=== PATIENT | male | born 1995 | race African-American/Black ===

== ENCOUNTER 2023-08-24 12:48 | Emergency (ER) | payer MEDICAID, SELFPAY ==
--- NOTE | ~2023-08-24 | CT_ITS ---
EXAMINATION: CT HEAD WITHOUT CONTRAST CLINICAL INFORMATION: Trouble word finding. COMPARISON: None available. TECHNIQUE: Contiguous axial imaging was performed from the skull base to vertex without intravenous administration of contrast. This CT examination was performed using dose optimization techniques as appropriate, variously including the following: *Automated exposure control *Adjustment of mA and/or kV according to patient size (this includes techniques or standardized protocols for targeted exams where dose is matched to indication/reason for exam; i.e. extremities or head) *Use of iterative reconstruction technique DLP: 811 mGy-cm FINDINGS: There is no acute intra-axial, extra-axial bleed, masses or midline shift. The ulna and a difficult to significant bladder is nondistended with a most importantly, I have a lateral is July CT/CT head/brain wo IV con IMPRESSION: No acute intracranial pathology.
[2023-08-24 12:50] VITALS: BP 150/106; PULSE 101; RESP 18; TEMP 36.7; O2SAT 97; BMI 48.0
--- NOTE | 2023-08-24 12:50 | ED_ITS ---
HPI - General Adult General Chief complaint: Neuro Symptoms/Deficit Stated complaint: quest of stroke Time Seen by Provider: 08/24/23 13:37 Source: patient Mode of arrival: ambulatory Limitations: no limitations History of Present Illness HPI narrative: 28 y/o M patient; without significant PMH; presents from home with report of word finding difficulty associated with a left-sided headache. The patient states his symptoms started yesterday (08/23/2023) when he was in a car with a friend. He felt like he had to burp but swallowed it by accident. He then felt like he was daydreaming, eventually turning to his friend and apologizing for dosing off. The patient's friend reported he had bilateral leg stiffening and bilateral upper extremity shaking. He then appeared confused for a period of time after the episode. Today, he was standing in the kitchen and noticed he was having difficulty with word finding. He denied any other symptoms at that time. Patient's brother witnessed this and drove him to the ED. On arrival patient endorsing a left-sided headache. Patient and brother report family history of childhood epilepsy in uncle. Patient denies: smoking, alcohol use, or recreational drug use. Related Data Allergies Allergy/AdvReac Type Severity Reaction Status Date / Time No Known Allergies Allergy Unverified 06/07/20 17:30 Review of Systems 2 Review of Systems: Yes all other systems are reviewed and are negative Neurologic: Denies Abnormal speech present and Denies Sensory deficit (Neuro) [facility] [place] Past Medical History Attestation statement: The following information was validated with the patient. Social History Social History Advance Directives: No Advance Directives Information Provided: No Physical Exam ED Vital Signs: Vital Signs - 24 hr 08/24/23 12:50 Temperature 98.1 F Pulse Rate 101 H Respiratory Rate 18 Blood Pressure 150/106 H Pulse Oximetry 97 Oxygen Delivery Method Room Air BMI result Body Mass Index 48.0 Patient is afebrile and hemodynamically stable Const General: cooperative; No no acute distress Orientation/consciousness: patient oriented x3 HENMT Head: Yes normal to inspection and Yes atraumatic Ears: hearing grossly normal bilaterally, external ears normal and TM's normal bilaterally General nose exam: Normal external nose present Mouth: tongue normal Eyes General: appearance normal, both eyes and all related structures Pupils: Equal, round and reactive pupils present EOM: EOMs intact bilaterally Neck Neck: Yes full ROM and Yes supple Chest Chest palpation & inspection: normal inspection of the chest and normal palpation of entire chest wall Resp Effort & Inspection: normal respiratory effort and no respiratory distress Auscultation: clear to auscultation bilaterally Cardio Rate: regular rate Rhythm: regular rhythm GI Inspection: Yes normal to inspection Palpation (GI): Soft to palpation, nontender, no guarding and not rigid Auscultation: normal bowel sounds Neuro General: patient oriented x3, gait normal, moves all extremities, no focal motor deficits and CN's II-XI intact bilaterally Cranial nerves: Yes Equal, round and reactive pupils present and Yes Midline tongue present Cognition (Neuro): normal cognition Speech: No Abnormal speech present, No Expressive aphasia present and No Receptive aphasia present Sensory Exam: No Sensory deficit (Neuro) Coordination: [id number] test normal Course Course Course Narrative: RME performed by Rachel Martin PA-C. Patient is a 28 year old assigned male at presenting to the emergency department with trouble word finding. Labs, imaging, and swabs ordered. Patient placed back in the waiting room pending room availability and results. Reevaluation(s) Reevaluation #1: Patient is afebrile and hemodynamically stable. CT Head ordered in triage unremarkable. Labs ordered in triage: no leukocytosis, CMP unremarkable. COVID/Flu/RSV negative. Treated patient's headache with Reglan, Benadryl, Tylenol, and Toradol. EKG with NSR 75BPM without ischemic changes, normal intervals. Time: 14:47 Reevaluation #2: Possible concern for seizure like event yesterday 08/23/2023. Patient instructed to refrain from driving until assessed by neurologist. Neurologist referral provided. Low suspicion for CVA given unremarkable neurological exam, negative CT Head, and history more compatible with possible seizure. Time: 15:37 Reevaluation #3: Patient re-evaluated, reports significant improvement in headache. Patient able to converse without difficulty, no change in neurological examination in the ED. Remains at baseline. Brother of patient and patient encouraged to return immediately for any new neurological symptoms, otherwise recommended to follow up closely with Neurology for further out-patient evaluation. Medications Administered Discontinued Medications Generic Name Dose Route Start Last Admin Trade Name Freq PRN Reason Stop Dose Admin Acetaminophen 975 mg 08/24/23 14:39 08/24/23 15:18 Acetaminophen 325 Mg Tablet PO 08/24/23 14:40 975 mg ONCE ONE Administration Diphenhydramine HCl 50 mg 08/24/23 14:39 08/24/23 15:19 Diphenhydramine Hcl 25 Mg Capsule PO 08/24/23 14:40 50 mg ONCE ONE Administration Ketorolac Tromethamine 30 mg 08/24/23 14:39 08/24/23 15:19 Ketorolac Tromethamine 30 Mg/Ml Vial IM 08/24/23 14:40 30 mg ONCE ONE Administration Metoclopramide HCl 10 mg 08/24/23 14:39 08/24/23 15:19 Metoclopramide Hcl 10 Mg Tablet PO 08/24/23 14:40 10 mg ONCE ONE Administration Medical Decision Making Lab Data 08/24/23 13:51 08/24/23 13:51 Labs: Lab Results 08/24/23 08/24/23 Range/Units 13:51 18:07 WBC 7.7 (4.8-10.8) X10*3/uL RBC 6.26 H (4.60-5.80) X10*6/uL Hgb 13.7 L (14.0-18.0) g/dl Hct 44.3 (42.0-52.0) % MCV 70.8 L (80.0-98.0) fL MCH 21.9 L (27.0-33.0) pg MCHC 30.9 L (31.0-36.0) g/dl RDW 17.7 H (11.0-16.0) % Plt Count 179 (160-400) X10*3/uL MPV 10.0 (9.4-12.4) fL Immature Gran % (Auto) 0.5 H (0.0-0.4) % Neut % (Auto) 61.3 (45-73) % Lymph % (Auto) 27.9 (20-40) % [place] % (Auto) 8.5 (2-11) % Eos % (Auto) 1.3 (0-4) % Baso % (Auto) 0.5 (0-2) % Lymph # (Auto) 2.1 (1.2-4.9) X10*3/uL [place] # (Auto) 0.7 (0.1-1.2) X10*3/uL Eos # (Auto) 0.1 (0.0-0.4) X10*3/uL Baso # (Auto) 0.0 (0.0-0.2) X10*3/uL Abs Immat Gran (auto) 0.04 H (0.00-0.03) X10*3/uL Absolute Neuts (auto) 4.7 (2.0-8.3) x10*3/uL Absolute Nucleated RBC 0.000 (0.0-0.012) X10*3/uL Nucleated RBC % (auto) 0.0 (0.0-0.2) /100WBC Smear Tech's Comments VERIFIED PT 12.8 (11.1-13.3) SEC INR 1.1 (0.9-1.1) APTT 32.4 (26.0-36.4) SEC Sodium 139 (135-145) mmol/L Potassium 3.9 (3.3-5.1) mmol/L Chloride 106 (96-108) mmol/L Carbon Dioxide 26 (22-29) mmol/L Anion Gap 11 L (12-20) BUN 11 (9-16) mg/dL Creatinine 1.00 (0.5-1.4) mg/dL Estim Creat Clear Calc 146.1 Estimated GFR > 60 Random Glucose 98 (60-115) mg/dL Calcium 8.8 (8.4-10.2) mg/dL Magnesium 1.9 (1.6-2.6) mg/dL Total Bilirubin 0.3 (0.0-1.0) mg/dL AST 15 (5-37) U/L ALT 18 (0-40) U/L Alkaline Phosphatase 101 (39-117) U/L Total Protein 7.1 (6.5-8.0) g/dL Albumin 3.8 (3.5-5.0) g/dL Lipase 8 (8-78) U/L Urine Color Yellow Urine Appearance Clear Urine pH 7.5 (5.0-9.0) Ur Specific [employer] 1.020 (1.005-1.025) Urine Protein Negative (Neg-Trace) mg/dL Urine Glucose (UA) Negative (Negative) mg/dL Urine Ketones Negative (Negative) mg/dL Urine Blood Negative (Negative) Urine Nitrite Negative (Negative) Ur Leukocyte Esterase Negative (Negative) Urine Opiates Screen Not Detected (Not Detect) Urine Fentanyl Screen Not Detected (Not Detect) Ur Barbiturates Screen Not Detected (Not Detect) Ur Phencyclidine Scrn Not Detected (Not Detect) Ur Amphetamines Screen Not Detected (Not Detect) U Benzodiazepines Scrn Not Detected (Not Detect) Urine Cocaine Screen Not Detected (Not Detect) U Marijuana (THC) Screen Not Detected (Not Detect) Ethyl Alcohol < 10 mg/dL Influenza Type A (PCR) NEGATIVE (Negative) Influenza Type B (PCR) NEGATIVE (Negative) RSV RNA Qual (PCR) NEGATIVE (Negative) SARS-CoV-2 RNA (RT-PCR) NEGATIVE (Negative) Discharge Plan Discharge Clinical Impression: Headache Patient Disposition: Home, Self-Care Instructions: Acute Headache (DC), New-Onset Seizure in Adults (ED) Additional Instructions: As we discussed, you were seen today for an episode of possible seizure yesterday and a headache with word finding difficulty today. Your CT Head was reassuring. Your labs were reassuring. Your headache was treated with Tylenol, Toradol, Reglan, and Benadryl. Please follow up with the Neurologist within the next 2 - 3 days (call to make an appointment). Return to the ED for any new neurological symptoms (confusion, numbness/weakness/tingling of your arm or legs, facial droop). Referrals: [facility] [place] [facility] [Provider Group] - 3 days (Possible first seizure episode ) Interventions: ED Discharge Assessment Last Done: 08/24/23 18:55 Discharge Date/Time: 08/24/23 18:56
[2023-08-24 14:10] LABS: INTERNATIONAL NORM RATIO 1.1 (0.9-1.1); Prothrombin Time 12.8 SEC (11.1-13.3)
[2023-08-24 14:12] LABS: Partial Thromboplastin Time 32.4 SEC (26.0-36.4)
[2023-08-24 14:14] LABS: Alanine Aminotransferase 18 U/L (0-40); Albumin Level 3.8 g/dL (3.5-5.0); Alkaline Phosphatase 101 U/L (39-117); Anion Gap 11 (12-20); Aspartate Amino Transferase 15 U/L (5-37); Bilirubin Total 0.3 mg/dL (0.0-1.0); Blood Urea Nitrogen 11 mg/dL (9-16); Calcium 8.8 mg/dL (8.4-10.2); Carbon Dioxide 26 mmol/L (22-29); Chloride 106 mmol/L (96-108); Creatinine Clr Calc Pharmacy 146.1; Estimated Glomerular Filt Rate > 60; Ethanol < 10 mg/dL; Glucose Random 98 mg/dL (60-115); Lipase 8 U/L (8-78); Magnesium 1.9 mg/dL (1.6-2.6); Potassium 3.9 mmol/L (3.3-5.1); Sodium 139 mmol/L (135-145); Total Protein 7.1 g/dL (6.5-8.0)
[2023-08-24 14:17] LABS: Basophils Percent Auto 0.5 % (0-2); Eosinophils Absolute Auto 0.1 X10*3/uL (0.0-0.4); Eosinophils Percent Auto 1.3 % (0-4); Hematocrit 44.3 % (42.0-52.0); Hemoglobin 13.7 g/dl (14.0-18.0); Imm Gran Abs Auto 0.04 X10*3/uL (0.00-0.03); Imm Gran Pct Auto 0.5 % (0.0-0.4); Lymphocytes Absolute Auto 2.1 X10*3/uL (1.2-4.9); Lymphocytes Percent Auto 27.9 % (20-40); MANUAL DIFF FLAG SCAN; Mean Corpuscular HGB Conc 30.9 g/dl (31.0-36.0); Mean Corpuscular Hemoglobin 21.9 pg (27.0-33.0); Mean Corpuscular Volume 70.8 fL (80.0-98.0); Monocytes Absolute Auto 0.7 X10*3/uL (0.1-1.2); Monocytes Percent Auto 8.5 % (2-11); Neutrophils Absolute Auto 4.7 x10*3/uL (2.0-8.3); Neutrophils Percent Auto 61.3 % (45-73); PLT CLUMP 1; Red Blood Count 6.26 X10*6/uL (4.60-5.80); Red Cell Distribution Width 17.7 % (11.0-16.0); SCAN SMEAR FLAG 1
[2023-08-24 14:25] LABS: White Blood Count 7.7 X10*3/uL (4.8-10.8)
[2023-08-24 14:38] LABS: Influenza A PCR NEGATIVE (Negative); Influenza B PCR NEGATIVE (Negative); Resp Syncy Virus RNA Qual PCR NEGATIVE (Negative); SARS COV2 PCR INHOUSE NEGATIVE (Negative)
--- NOTE | 2023-08-24 14:49 | ECG_ITS ---
Test Reason : RON SYMPTOMS Blood Pressure : / mmHG Vent. Rate : 075 BPM Atrial Rate : 075 BPM P-R Int : 164 ms QRS Dur : 082 ms QT Int : 374 ms P-R-T Axes : 036 010 027 degrees QTc Int : 417 ms Normal sinus rhythm Normal ECG When compared with ECG of 19-MAR-2020 20:26, No significant change was found Referred By: Elena Palma Electronically Signed By:TAMIR COX
[2023-08-24 14:53] LABS: Platelet Count 179 X10*3/uL (160-400); SLIDE REVIEW VERIFIED
[2023-08-24] MEDS: Acetaminophen 325 MG TABLET 975 MG PO (15:18)
[2023-08-24] MEDS: Metoclopramide HCl 10 MG TABLET PO (15:19)
[2023-08-24] MEDS: Ketorolac Tromethamine 30 MG/ML VIAL IM (15:19)
[2023-08-24] MEDS: diphenhydrAMINE HCL 25 MG CAPSULE 50 MG PO (15:19)
--- NOTE | 2023-08-24 17:35 | PC.NURSE ---
patient aware that we are awaiting a urine sample, attempted to urinate however patient states he was unable to void. provided with large pitcher of water and encouraged to drink
[2023-08-24 18:21] LABS: Appearance Urine Clear; Color Urine Yellow; Glucose Urine UA Negative (Negative); Leukocyte Esterase Urine Negative (Negative); Nitrite Urine Negative (Negative); PH 7.5 (5.0-9.0); Urine Blood Negative (Negative); Urine Ketones Negative (Negative); Urine Protein Negative (Neg-Trace)
[2023-08-24 18:32] LABS: Amphetamine Screen Urine Not Detected (Not Detect); Barbiturates, Urine Not Detected (Not Detect); Benzodiazepines Screen Urine Not Detected (Not Detect); Cannabinoid Screen Urine Not Detected (Not Detect); Cocaine Screen Urine Not Detected (Not Detect); Fentanyl, urine Not Detected (Not Detect); Opiate Screen Urine Not Detected (Not Detect); Phencyclidine Screen Urine Not Detected (Not Detect)
[2023-08-25 22:09] LABS: A. Phagocytphilium DNA,RT-PCR NOT DETECTED (NOT DETECTED); Babesia Microti DNA, RT-PCR NOT DETECTED (NOT DETECTED); Borrelia Miyamotoi,DNA RT-PCR NOT DETECTED (NOT DETECTED); E.Chaffeensis DNA RT-PCR NOT DETECTED (NOT DETECTED); Lyme(Borrelia ssp)DNA RT-PCR NOT DETECTED (NOT DETECTED)
== END 2023-08-24 18:56 | disposition home or self-care (01) ==
PROVIDERS: Physician Assistant Medical; Emergency Provider Emergency Medicine
DX: R51.9 Headache, unspecified (principal); Z20.822 Contact with and (suspected) exposure to COVID-19; Z20.828 Contact with and (suspected) exposure to other viral communicable diseases; Z79.899 Other long term (current) drug therapy
CPT/HCPCS: 0241U; 36415; 70450; 80053; 80307; 81003; 83690; 83735; 85025; 85610; 85730; 87468; 87469; 87478; 87484; 87798; 93005; 96372; 99284; J1885

== ENCOUNTER → 2023-08-24 14:49 | Outpatient (BNV) | payer MEDICAID, SELFPAY | PROVIDERS: Emergency Provider Emergency Medicine; Visit Provider Internal Medicine | DX: I63.9 Cerebral infarction, unspecified (principal) | CPT/HCPCS: 93010 ==

== ENCOUNTER 2023-09-04 13:49 | Outpatient (AMB) | payer OTHER, SELFPAY ==
[2023-09-04 13:52] VITALS: BP 100/70; PULSE 112; O2SAT 97; BMI 47.2
--- NOTE | 2023-09-04 13:52 | MHC.PC.OV ---
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 Filling Station Attendant Required: No Accompanied by: Self / Same As Patient Allergies No Known Allergies Allergy (Verified 09/04/23 14:13) Medication List - Last Reconciled 09/04/23 by Guanako Rodriguez MD No Known Home Meds Tobacco use date assessed: 09/04/23 Dental Screening Dental Screen Date: 09/04/23 Did you have a dental visit in the last 12 months?: Yes Did you have a dental problem in the last 6 months where you did not have access to dental care?: No Was dental information given to patient?: Patient has dentist HPI 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/ referral HPI Details Patient comes in today for his F follow up and to establish care - is a new patient to the practice He was brought to the ER early last week for left-sided headache and anomic aphasia that started the day before Relates that he was sitting in a car with his friend when he suddenly felt like he was daydreaming and this apparently lasted for a while His friend noted at the time that patient's legs appear stiff and his arms were shaking and patient then appeared confused for a period of time following these symptoms He started noticing that he had trouble finding the right words to say when he was talking the next day while in the kitchen in addition to a left-sided headache at the time, and he was then brought to the ER by his brother for further evaluation Work ups done in the ER, including labs, a respiratory panel as well as a head CT, all of which came back negative/normal He was then treated symptomatically for his headache and discharged home with instructions to see neurology [facility] for further evaluation but he found out when he tried to schedule an appointment with them that he needed to see his PCP first and get a referral States that he presently feels okay and denies any headaches or dizziness currently Denies any chest pains or palpitations, no SOB No nausea/vomiting, no abdominal pain No change in bowel habits noted [facility] Medical History (Updated 09/04/23 @ 15:06 by Guanako Rodriguez MD) Obesity (BMI 30-39.9) Asthma Surgical History No pertinent past surgical history Family History Other Diabetes Hypertension Social History Housing: House e-Cigarette/Vaping Use: Never Used service: No Current occupational status: employed and unemployed Cognitive needs: No Hearing needs: No Vision needs: No Questionnaire PHQ-9 Over the last 2 weeks, how often have you been bothered by any of the following problems? 1. Little interest or pleasure in doing things: not at all 2. Feeling down, depressed, or hopeless: not at all 3. Trouble falling or staying asleep, or sleeping too much: not at all 4. Feeling tired or having little energy: not at all 5. Poor appetite or overeating: not at all 6. Feeling bad about yourself - or that you are a failure or have let yourself or your family down: not at all 7. Trouble concentrating on things, such as reading the newspaper or watching television: not at all 8. Moving or speaking so slowly that other people could have noticed. Or the opposite - being so fidgety or restless that you have been moving around a lot more than usual: not at all 9. Thoughts that you would be better off or of hurting yourself in some way: not at all Total score: 0 Depression Screening Interpretation: Negative Depression Screening Done: Yes 44116 - PHQ-9 Billing: Yes Source: Developed by Drs. Raad Gregory, Elma Rees, Eddi Muse and colleagues, with an educational georgie from [employer]. Thrive Questionnaire Date Thrive assessed: 09/04/23 I am a: Patient What is your living situation today?: I have a steady place to live Within the past 12 months, did the food you bought not last and you didn't have the money to get more?: Never true Within the past 12 months, did you worry whether your food would run out before you got money to buy more?: Never true Do you have trouble paying for medicines?: No Do you have trouble getting transportation to medical appointments?: No Do you have trouble paying your heating and electricity bill?: No Do you have trouble taking care of your child, family member or friend?: No Do you have trouble with day-to-day activities such as bathing, preparing meals, shopping, managing finances, etc.?: No Are you currently unemployed and looking for a job?: No Are you interested in more education?: No Please select the resources that you would like help with: None Currently or been in a relationship where the following occur: no concerns reported AUDIT C Alcohol Use Questionnaire (AUDIT-C) 1. How often do you have a drink containing alcohol?: Never 3. How often do you have six or more drinks on one occasion?: Never Total Score: 0 Score Reviewed/Action Taken: Yes JENI-7 AMB Questionnaire JENI-7 Date JENI - 7 assessed: 09/04/23 Feeling nervous, anxious, or on edge: 0 = Not at all Not being able to stop or control worryin = Not at all Worrying too much about different things: 0 = Not at all Trouble relaxin = Not at all Being so restless that it is hard to sit still: 0 = Not at all Becoming easily annoyed or irritable: 0 = Not at all Feeling afraid as if something awful might happen: 0 = Not at all Total JENI-7 score (0-4 normal; 5-9 mild; 10-14 moderate; 15-21 severe): 0 Source: Developed by Drs. Raad Gregory, Elma Rees, Eddi Muse and colleagues, with an educational georgie from [employer]. Review of Systems Const Denies chills, Reports fatigue, Denies fever(s) and Reports headache(s) (on and off, left-sided) Eyes Denies blurry vision ENT Denies dysphagia, Denies dizziness, Denies otalgia, Reports headache(s) (on and off, left-sided), Denies neck pain, Denies odynophagia and Denies sore throat Card Denies chest pain, Denies palpitations and Denies dyspnea Resp Denies cough and Denies dyspnea GI Denies abdominal pain, Denies constipation, Denies dysphagia, Denies heartburn, Denies diarrhea, Denies nausea, Denies odynophagia and Denies vomiting Denies dysuria, Denies nocturia and Denies urinary frequency Musc Denies back pain, Denies arthralgias and Denies neck pain Skin/Breast Denies rash Neuro Denies Abnormal speech present (none at present), Denies dizziness, Reports headache(s) (on and off, left-sided) and Denies Sensory deficit (Neuro) Endo Reports fatigue and Denies palpitations Physical exam (Primary Care) Vital Signs: Last Vital Signs Pulse 112 H 09/04/23 13:52 BP 100/70 09/04/23 13:52 Pulse Ox 97 09/04/23 13:52 Oxygen Delivery Method Room Air 09/04/23 13:52 BMI result Body Mass Index 47.2 Tobacco/Smoking Status: Tobacco use Status Tobacco use date assessed 09/04/23 09/04/23 13:59 e-Cigarette/Vaping Use Never Used 09/04/23 13:59 PHQ-9: PHQ-9 Score PHQ-9: Total score 0 09/04/23 13:59 Depression Screening Interpretation: Negative Thrive Assessment: Date of Thrive Assessment Date Thrive assessed 09/04/23 09/04/23 13:59 Currently or been in a relationship where the following occur: no concerns reported Const General: no acute distress and alert Orientation/consciousness: patient oriented x3 HENMT Ears: TM's normal bilaterally and EAC's normal Throat: Yes posterior oropharynx normal and Yes tonsils normal (no TP congestion) Neck Neck: Yes no lymphadenopathy and Yes supple Resp Auscultation: clear to auscultation bilaterally, no rales and no wheezes Cardio Rate: regular rate Rhythm: regular rhythm Heart sounds: no murmurs GI Palpation (GI): Soft to palpation and nontender Auscultation: normal bowel sounds Skin Rashes: no rashes Neuro General: patient oriented x3, moves all extremities, no focal motor deficits and CN's II-XI intact bilaterally Cognition (Neuro): normal cognition Speech: No Abnormal speech present (none at present) Gait exam (Neuro): Normal gait present Motor exam (neuro): 5/5 motor strength present throughout Sensory Exam: No Sensory deficit (Neuro) Extrem General: Yes no clubbing, cyanosis or edema Results Reviewed Results Reviewed: Laboratory Tests 08/24/23 08/24/23 08/24/23 13:51 13:51 18:07 WBC 7.7 Hgb 13.7 L MCV 70.8 L MCH 21.9 L MCHC 30.9 L RDW 17.7 H Sodium 139 Potassium 3.9 Creatinine 1.00 Estimated GFR > 60 Random Glucose 98 Calcium 8.8 Magnesium 1.9 AST 15 ALT 18 Ur Specific [place] 1.020 Urine Protein Negative Urine Glucose (UA) Negative Urine Blood Negative Assessment and Plan Assessment & Plan (1) Epilepsy: Code(s): G40.909 - Epilepsy, unspecified, not intractable, without status epilepticus Qualifiers: Epilepsy type: unspecified Intractability: not intractable Status epilepticus: without status epilepticus Qualified Code(s): G40.909 - Epilepsy, unspecified, not intractable, without status epilepticus Plan: Discussed that his symptoms last week may suggest a possible seizure episode Head CT done at the ER last week came out normal Labs done were also normal except for a mild microcytic, normochromic anemia Will send him for some additional labs, including iron profile, B12, ferritin level and Hgb electrophoresis, for further evaluation Will also refer him to neurology for further evaluation and management - advised that he will likely need some EEG done for further evaluation (2) Hypochromic microcytic anemia: Code(s): D50.9 - Iron deficiency anemia, unspecified Plan: Will check iron profile, serum ferritin, B12 level and Hgb electrophoresis for further evaluation (3) Asthma: Comment: states that he has not had any issues lately Code(s): J45.909 - Unspecified asthma, uncomplicated Qualifiers: Asthma severity: mild Asthma persistence: intermittent Asthma complication type: uncomplicated Qualified Code(s): J45.20 - Mild intermittent asthma, uncomplicated Plan: Patient states that he mostly had asthma as a child and has not needed to use any rescue inhaler over the years (4) Obesity (BMI 30-39.9): Code(s): E66.9 - Obesity, unspecified Plan: Discussed diet/exercise as tolerated/lose weight Plan Follow up in 2 months Orders: Orders Hemoglobin Electrophoresis Today D50.9 - Iron deficiency anemia, unspecified, D64.9 - Anemia, unspecified, R71.8 - Other abnormality of red blood cells Ferritin Today D50.9 - Iron deficiency anemia, unspecified, D64.9 - Anemia, unspecified, R71.8 - Other abnormality of red blood cells IRON PROFILE Today D50.9 - Iron deficiency anemia, unspecified, D64.9 - Anemia, unspecified, R71.8 - Other abnormality of red blood cells Vitamin B12 and Folate Today E53.8 - Deficiency of other specified B group vitamins TSH reflex Free T4 Today R53.83 - Other fatigue Complete Blood Count Auto Diff Today D50.9 - Iron deficiency anemia, unspecified, D64.9 - Anemia, unspecified, R71.8 - Other abnormality of red blood cells Vitamin D 25-OH Total Today E55.9 - Vitamin D deficiency, unspecified Hemoglobin A1c Today E11.9 - Type 2 diabetes mellitus without complications Referrals Neurology Referral R47.01 - Aphasia, R51.9 - Headache, unspecified Coding Level of Care Code New Pt Level 4 (75159) Diagnoses Nonintractable epilepsy without status epilepticus, unspecified epilepsy type G40.909 Epilepsy type: unspecified Intractability: not intractable Status epilepticus: without status epilepticus Hypochromic microcytic anemia D50.9 Mild intermittent asthma without complication J45.20 Asthma severity: mild Asthma persistence: intermittent Asthma complication type: uncomplicated Obesity (BMI 30-39.9) E66.9
== END 2023-09-04 14:38 | disposition home or self-care (01) ==
PROVIDERS: Visit Provider Internal Medicine
DX: G40.909 Epilepsy, unspecified, not intractable, without status epilepticus (principal); E66.9 Obesity, unspecified; Z68.42 Body mass index [BMI] 45.0-49.9, adult; D50.9 Iron deficiency anemia, unspecified; J45.20 Mild intermittent asthma, uncomplicated
CPT/HCPCS: 99204

== ENCOUNTER 2023-09-04 14:45 | Outpatient (REF) | payer OTHER, SELFPAY ==
[2023-09-04 15:25] LABS: MANUAL DIFF FLAG NO
[2023-09-04 15:32] LABS: Basophils Absolute Auto 0.1 X10*3/uL (0.0-0.2); Basophils Percent Auto 0.6 % (0-2); Eosinophils Absolute Auto 0.3 X10*3/uL (0.0-0.4); Eosinophils Percent Auto 2.3 % (0-4); Hematocrit 44.6 % (42.0-52.0); Hemoglobin 13.9 g/dl (14.0-18.0); Imm Gran Abs Auto 0.05 X10*3/uL (0.00-0.03); Imm Gran Pct Auto 0.5 % (0.0-0.4); Lymphocytes Absolute Auto 3.4 X10*3/uL (1.2-4.9); Lymphocytes Percent Auto 31.7 % (20-40); Mean Corpuscular HGB Conc 31.2 g/dl (31.0-36.0); Mean Corpuscular Hemoglobin 22.3 pg (27.0-33.0); Mean Corpuscular Volume 71.5 fL (80.0-98.0); Mean Platelet Volume 9.9 fL (9.4-12.4); Monocytes Absolute Auto 0.8 X10*3/uL (0.1-1.2); Monocytes Percent Auto 7.1 % (2-11); Neutrophils Absolute Auto 6.2 x10*3/uL (2.0-8.3); Neutrophils Percent Auto 57.8 % (45-73); Platelet Count 237 X10*3/uL (160-400); Red Blood Count 6.24 X10*6/uL (4.60-5.80); Red Cell Distribution Width 18.2 % (11.0-16.0); White Blood Count 10.7 X10*3/uL (4.8-10.8)
[2023-09-04 15:40] LABS: Estimated Average Glucose 117 mg/dL; Hemoglobin A1c % 5.7 % (<6.0)
[2023-09-04 16:16] LABS: Iron 50 mcg/dL (45-160); Percent Iron Saturation 22 % (15-50); Total Iron Binding Capacity 232 mcg/dL (228-428); Unsaturated Iron Binding 182 ug/dL
[2023-09-04 16:33] LABS: Ferritin 64 ng/mL (20-250); TSH reflex Free T4 0.75 uIU/mL (0.32-4.0); Vitamin D 25-OH Total 21.4 ng/mL (>30)
[2023-09-04 16:41] LABS: Vitamin B12 677 pg/mL (200-900)
[2023-09-07 14:17] LABS: Hematocrit 43.6 % (38.5-50.0); Hemoglobin 13.8 g/dL (13.2-17.1); MCH 22.2 pg (27.0-33.0); RBC 6.23 Million/uL (4.20-5.80); RDW 17.1 % (11.0-15.0)
== END 2023-09-04 14:46 | disposition home or self-care (01) ==
LOC: HO.LAB 14:45
PROVIDERS: PCP Internal Medicine; Visit Provider Internal Medicine
DX: D64.9 Anemia, unspecified (principal); R71.8 Other abnormality of red blood cells; D50.9 Iron deficiency anemia, unspecified; E11.9 Type 2 diabetes mellitus without complications; R53.83 Other fatigue; E53.8 Deficiency of other specified B group vitamins; E55.9 Vitamin D deficiency, unspecified
CPT/HCPCS: 36415; 82306; 82607; 82728; 82746; 83020; 83036; 83540; 84443; 85014; 85018; 85025; 85041

== ENCOUNTER 2023-11-09 14:17 | Outpatient (AMB) | payer OTHER, SELFPAY ==
[2023-11-09 14:21] VITALS: BP 102/64; PULSE 98; O2SAT 99; BMI 48.6
--- NOTE | 2023-11-09 14:21 | A.OFFPC_ITS ---
Vital Signs 11/09/23 14:21 Height 5 ft 6 in Weight 301 lb 6 oz BMI 48.6 BP 102/64 Blood Pressure Location Lt brachial Position Sitting Pulse 98 Pulse Source Pulse Oximeter Pulse Oximetry (%) 99 Oxygen Delivery Method Room Air Intake Visit Reasons: aphasia, epilepsy(?), headache Wrapper Operator Required: No Accompanied by: Self / Same As Patient Allergies No Known Allergies Allergy (Verified 03/11/24 18:59) Medication List - Last Reconciled 11/09/23 by Guanako Rodriguez MD cholecalciferol (vitamin D3) 50 mcg PO DAILY 90 days Tobacco use date assessed: 11/09/23 Dental Screening Dental Screen Date: 11/09/23 Did you have a dental visit in the last 12 months?: No Did you have a dental problem in the last 6 months where you did not have access to dental care?: No Was dental information given to patient?: No HPI aphasia, epilepsy(?), headache HPI Details Patient comes in today for his follow up visit States that he currently feels okay States that he has not had any headaches or aphasic spells lately although he feels that he still has trouble concentrating at times Notes that when he is having a conversation with someone, his mind and attention span will tend to drift off (unintentionally) after a while He also reports experiencing trouble sleeping at night although he admits that his sleeping habits are not the best - would like to see if he can be referred to a sleep specialist for further evaluation He denies any dizziness and has not had any syncopal spells lately He denies any chest pains, no SOB No nausea/vomiting, no abdominal pain No change in bowel habits noted He was previously referred to neurology for further evaluation and management and is scheduled to be seen by [facility] for the first time next month on 12/04/2023 Would also like to know how he did on his labs back in August 2023 [facility] Medical History (Updated 03/12/24 @ 04:26 by Guanako Rodriguez MD) Vitamin D deficiency Epilepsy Morbid obesity with BMI of 50.0-59.9, adult Alpha thalassemia trait Obesity (BMI 30-39.9) Asthma Surgical History No pertinent past surgical history Family History Other Diabetes Hypertension Social History Housing: House Patient Tobacco Use Status: Never used Tobacco e-Cigarette/Vaping Use: Never Used service: No Current occupational status: employed and unemployed Cognitive needs: No Hearing needs: No Vision needs: No Questionnaire PHQ-9 Over the last 2 weeks, how often have you been bothered by any of the following problems? 1. Little interest or pleasure in doing things: not at all 2. Feeling down, depressed, or hopeless: not at all 3. Trouble falling or staying asleep, or sleeping too much: not at all 4. Feeling tired or having little energy: not at all 5. Poor appetite or overeating: not at all 6. Feeling bad about yourself - or that you are a failure or have let yourself or your family down: not at all 7. Trouble concentrating on things, such as reading the newspaper or watching television: not at all 8. Moving or speaking so slowly that other people could have noticed. Or the opposite - being so fidgety or restless that you have been moving around a lot more than usual: not at all 9. Thoughts that you would be better off or of hurting yourself in some way: not at all Total score: 0 Depression Screening Interpretation: Negative Depression Screening Done: Yes 64251 - PHQ-9 Billing: Yes Source: Developed by Drs. Raad Gregory, Elma Rees, Eddi Muse and colleagues, with an educational georgie from [employer]. Thrive Questionnaire Date Thrive assessed: 11/09/23 I am a: Patient What is your living situation today?: I have a steady place to live Within the past 12 months, did the food you bought not last and you didn't have the money to get more?: Never true Within the past 12 months, did you worry whether your food would run out before you got money to buy more?: Never true Do you have trouble paying for medicines?: No Do you have trouble getting transportation to medical appointments?: No Do you have trouble paying your heating and electricity bill?: No Do you have trouble taking care of your child, family member or friend?: No Do you have trouble with day-to-day activities such as bathing, preparing meals, shopping, managing finances, etc.?: No Are you currently unemployed and looking for a job?: No Are you interested in more education?: No Please select the resources that you would like help with: None Currently or been in a relationship where the following occur: no concerns reported THRIVE Score: 0 AUDIT C Alcohol Use Questionnaire (AUDIT-C) 1. How often do you have a drink containing alcohol?: Never 3. How often do you have six or more drinks on one occasion?: Never Total Score: 0 Score Reviewed/Action Taken: Yes JENI-7 AMB Questionnaire JENI-7 Date JENI - 7 assessed: 11/09/23 Feeling nervous, anxious, or on edge: 0 = Not at all Not being able to stop or control worryin = Not at all Worrying too much about different things: 0 = Not at all Trouble relaxin = Not at all Being so restless that it is hard to sit still: 0 = Not at all Becoming easily annoyed or irritable: 0 = Not at all Feeling afraid as if something awful might happen: 0 = Not at all Total JENI-7 score (0-4 normal; 5-9 mild; 10-14 moderate; 15-21 severe): 0 Source: Developed by Drs. Raad Gregory, Elma Rees, Eddi Muse and colleagues, with an educational georgie from [employer]. Review of Systems Const Denies chills, Denies fatigue, Denies fever(s) and Denies headache(s) Eyes Denies blurry vision ENT Denies dysphagia, Denies dizziness, Denies otalgia, Denies headache(s), Denies neck pain, Denies odynophagia and Denies sore throat Card Denies chest pain, Denies palpitations and Denies dyspnea Resp Denies chest congestion, Denies cough and Denies dyspnea GI Denies abdominal pain, Denies constipation, Denies dysphagia, Denies heartburn, Denies diarrhea, Denies nausea, Denies odynophagia and Denies vomiting Denies dysuria, Denies nocturia and Denies urinary frequency Musc Denies back pain, Denies arthralgias and Denies neck pain Skin/Breast Denies rash Neuro Denies Abnormal speech present, Denies dizziness, Denies headache(s), Denies convulsions and Denies Sensory deficit (Neuro) Psych Reports as per HPI and Reports difficulty concentrating Endo Denies fatigue and Denies palpitations Physical exam (Primary Care) Vital Signs: Last Vital Signs Pulse 98 11/09/23 14:21 BP 102/64 11/09/23 14:21 Pulse Ox 99 11/09/23 14:21 Oxygen Delivery Method Room Air 11/09/23 14:21 BMI result Body Mass Index 48.6 Tobacco/Smoking Status: Tobacco use Status Tobacco use date assessed 11/09/23 11/09/23 14:27 e-Cigarette/Vaping Use Never Used 11/09/23 14:27 PHQ-9: PHQ-9 Score PHQ-9: Total score 0 11/09/23 15:22 Depression Screening Interpretation: Negative Thrive Assessment: Date of Thrive Assessment Date Thrive assessed 11/09/23 11/09/23 14:27 Currently or been in a relationship where the following occur: no concerns reported Const General: no acute distress and alert Orientation/consciousness: patient oriented x3 HENMT Ears: TM's normal bilaterally and EAC's normal Throat: Yes posterior oropharynx normal and Yes tonsils normal (no TP congestion) Neck Neck: Yes no lymphadenopathy and Yes supple Thyroid: Thyroid normal Resp Auscultation: clear to auscultation bilaterally, no rales and no wheezes Cardio Rate: regular rate Rhythm: regular rhythm Heart sounds: no murmurs GI Palpation (GI): Soft to palpation and nontender Auscultation: normal bowel sounds Skin Rashes: no rashes Neuro General: patient oriented x3, no focal motor deficits and CN's II-XI intact b ilaterally Cognition (Neuro): normal cognition Speech: No Abnormal speech present Gait exam (Neuro): Normal gait present Motor exam (neuro): 5/5 motor strength present throughout Sensory Exam: No Sensory deficit (Neuro) Extrem General: Yes no clubbing, cyanosis or edema Results Reviewed Results Reviewed: Laboratory Tests 08/24/23 08/24/23 09/04/23 13:51 18:07 15:23 WBC 10.7 Hgb 13.9 L Hct 44.6 Plt Count 237 D Sodium 139 Potassium 3.9 Creatinine 1.00 Estimated GFR > 60 Random Glucose 98 Hemoglobin A1c % 5.7 Calcium 8.8 Magnesium 1.9 Iron 50 TIBC 232 % Saturation 22 Ferritin 64 AST 15 ALT 18 Vitamin B12 677 25-OH Vitamin D Total 21.4 L Folate 14.0 TSH 0.75 Ur Specific [place] 1.020 Urine Protein Negative Urine Glucose (UA) Negative Urine Blood Negative Urine Nitrite Negative Ur Leukocyte Esterase Negative Assessment and Plan Assessment & Plan (1) Epilepsy: Comment: Episode of AMS on 08/23/23 and 08/24/23 Code(s): G40.909 - Epilepsy, unspecified, not intractable, without status epilepticus Qualifiers: Epilepsy type: unspecified Intractability: not intractable Status epilepticus: without status epilepticus Qualified Code(s): G40.909 - Epilepsy, unspecified, not intractable, without status epilepticus Plan: Head CT done at the ER a few months ago came out normal Labs done back then were also normal except for a mild microcytic, normochromic anemia He was sent for some additional labs for further evaluation and he is interested in finding out how he did back then He was also referred to neurology then for further evaluation and management (he has been advised that he will likely need EEG done at some point) - he is now scheduled to be seen by [facility] in November 2022 (2) Hypochromic microcytic anemia: Code(s): D50.9 - Iron deficiency anemia, unspecified Plan: Results of his labs done back in August 2023, including his iron profile, serum ferritin, B12 level and Hgb electrophoresis reviewed and discussed with patient His Hgb electrophoresis revealed findings suggestive of either iron deficiency or alpha thalassemia trait His iron function studies and B12 level came back normal Advised that his tests indicate that he has alpha thalassemia trait He is reassured that alpha thalassemia trait is a benign condition with no jail health impact for himself but he will need to consider getting genetic testing done at some point in the future for his children's and grandchildren's sake He is requesting to see hematology for further evaluation - referral done (3) Asthma: Comment: states that he has not had any issues lately Code(s): J45.909 - Unspecified asthma, uncomplicated Qualifiers: Asthma complication type: uncomplicated Asthma persistence: intermittent Asthma severity: mild Qualified Code(s): J45.20 - Mild intermittent asthma, uncomplicated Plan: Patient states that he mostly had asthma as a child and has not needed to use any rescue inhaler over the years (4) Vitamin D deficiency: Code(s): E55.9 - Vitamin D deficiency, unspecified Plan: He is advised that his Vitamin D level came back low on his labs done in August 2023 and he should start taking supplements for this Will start him on Vitamin D3 2000 units QD (5) Morbid obesity with BMI of 45.0-49.9, adult: Code(s): E66.01 - Morbid (severe) obesity due to excess calories; Z68.42 - Body mass index [BMI] 45.0-49.9, adult Plan: Reinforced diet/exercise as tolerated/lose weight Per request, will refer him to weight management Plan To return in 4 months for his annual physical examination Orders: Referrals Hematology & Oncology Referral R71.8 - Other abnormality of red blood cells, D50.8 - Other iron deficiency anemias Medical Weight Management Referral E66.01 - Morbid (severe) obesity due to excess calories, Z68.42 - Body mass index [BMI] 45.0-49.9, adult Medications: New cholecalciferol (vitamin D3) 50 mcg PO DAILY 90 caps 3RF 90 days E55.9 - Vitamin D deficiency, unspecified Coding Level of Care Code Est Pt Level 4 (11786) Diagnoses Nonintractable epilepsy without status epilepticus, unspecified epilepsy type G40.909 Epilepsy type: unspecified Intractability: not intractable Status epilepticus: without status epilepticus Hypochromic microcytic anemia D50.9 Mild intermittent asthma without complication J45.20 Asthma complication type: uncomplicated Asthma persistence: intermittent Asthma severity: mild Vitamin D deficiency E55.9 Morbid obesity with BMI of 45.0-49.9, adult E66.01; Z68.42
== END 2023-11-09 15:26 | disposition home or self-care (01) ==
PROVIDERS: Visit Provider Internal Medicine
DX: G40.909 Epilepsy, unspecified, not intractable, without status epilepticus (principal); D50.9 Iron deficiency anemia, unspecified; J45.20 Mild intermittent asthma, uncomplicated; E55.9 Vitamin D deficiency, unspecified; E66.01 Morbid (severe) obesity due to excess calories; Z68.42 Body mass index [BMI] 45.0-49.9, adult
CPT/HCPCS: 99499

== ENCOUNTER 2023-12-04 08:14 | Outpatient (AMB) | payer OTHER, SELFPAY ==
[2023-12-04 08:20] VITALS: PULSE 92; O2SAT 98; BMI 48.6
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
== END 2023-12-04 09:30 | disposition home or self-care (01) ==
PROVIDERS: PCP Internal Medicine; Visit Provider Nurse Practitioner Family
DX: G40.909 Epilepsy, unspecified, not intractable, without status epilepticus (principal); E66.01 Morbid (severe) obesity due to excess calories; Z68.42 Body mass index [BMI] 45.0-49.9, adult; G47.9 Sleep disorder, unspecified; R06.83 Snoring; G47.19 Other hypersomnia; R40.20 Unspecified coma
CPT/HCPCS: 99204

== ENCOUNTER → 2023-12-04 08:14 | Outpatient (BNVA) | payer OTHER, SELFPAY | PROVIDERS: PCP Internal Medicine; Visit Provider Nurse Practitioner Family | DX: G40.909 Epilepsy, unspecified, not intractable, without status epilepticus (principal) | CPT/HCPCS: 99202 ==

== ENCOUNTER 2023-12-31 14:58 | Outpatient (REF) | payer OTHER, SELFPAY | END 2023-12-31 14:59 | disposition home or self-care (01) | LOC: HO.MRI 14:58 | PROVIDERS: PCP Internal Medicine; Visit Provider Nurse Practitioner Family | DX: Z13.89 Encounter for screening for other disorder (principal) ==

== ENCOUNTER → 2023-12-31 20:30 | Outpatient (REF) | payer OTHER, SELFPAY | LOC: HO.SL 20:30 | PROVIDERS: PCP Internal Medicine; Visit Provider Nurse Practitioner Family | DX: G47.33 Obstructive sleep apnea (adult) (pediatric) (principal); R06.83 Snoring; G47.19 Other hypersomnia; G47.9 Sleep disorder, unspecified; G40.909 Epilepsy, unspecified, not intractable, without status epilepticus; E66.01 Morbid (severe) obesity due to excess calories; Z68.42 Body mass index [BMI] 45.0-49.9, adult | CPT/HCPCS: 95810 ==

== ENCOUNTER → 2023-12-31 21:45 | Outpatient (BNV) | payer OTHER, SELFPAY | PROVIDERS: PCP Internal Medicine; Visit Provider Psychiatry & Neurology Neurology | DX: G47.33 Obstructive sleep apnea (adult) (pediatric) (principal) | CPT/HCPCS: 95810 ==

== ENCOUNTER 2024-03-11 16:36 | Outpatient (AMB) | payer OTHER, SELFPAY ==
[2024-03-11 16:43] VITALS: BP 116/68; PULSE 103; O2SAT 98; BMI 51.2
--- NOTE | 2024-03-11 16:43 | A.OFFPC_ITS ---
Vital Signs 03/11/24 16:43 Height 5 ft 6 in Weight 317 lb BMI 51.2 BP 116/68 Blood Pressure Location Lt brachial Position Sitting Pulse 103 H Pulse Source Pulse Oximeter Pulse Oximetry (%) 98 Oxygen Delivery Method Room Air Intake Visit Reasons: pe Allergies No Known Allergies Allergy (Verified 03/11/24 18:59) Medication List - Last Reconciled 03/11/24 by Guanako Rodriguez MD cholecalciferol (vitamin D3) 50 mcg PO DAILY 90 days Tobacco use date assessed: 03/11/24 Dental Screening Dental Screen Date: 03/11/24 Did you have a dental visit in the last 12 months?: Yes Did you have a dental problem in the last 6 months where you did not have access to dental care?: No Was dental information given to patient?: Patient has dentist HPI pe HPI Details Patient comes in today for his annual physical examination States that he feels okay and he has not had any seizures since August 2023 but still has trouble with his concentration at times Notes that his mind sometimes tends to drift off (unintentionally) in the middle of a conversation with someone He denies any headaches or dizziness Denies any chest pains, no SOB No nausea/vomiting, no abdominal pain No change in bowel habits noted He denies any acute urinary symptoms Relates that he has been experiencing recurrent neck pain that seems more pronounced when he is wearing any kind of necklace Adds that he has been experiencing recurrent transient tingling sensation and n umbness of his hands often when he wakes up from sleeping but admits that he often times sleeps on his hands / arms - notes that he would often wake up with his hands and arms under his body [facility] Medical History (Updated 03/11/24 @ 19:37 by Guanako Rodriguez MD) Epilepsy Morbid obesity with BMI of 50.0-59.9, adult Alpha thalassemia trait Obesity (BMI 30-39.9) Asthma Surgical History No pertinent past surgical history Family History Other Diabetes Hypertension Social History Housing: House Patient Tobacco Use Status: Never used Tobacco e-Cigarette/Vaping Use: Never Used service: No Current occupational status: employed and unemployed Cognitive needs: No Hearing needs: No Vision needs: No Questionnaire PHQ-9 Over the last 2 weeks, how often have you been bothered by any of the following problems? 1. Little interest or pleasure in doing things: not at all 2. Feeling down, depressed, or hopeless: not at all 3. Trouble falling or staying asleep, or sleeping too much: not at all 4. Feeling tired or having little energy: not at all 5. Poor appetite or overeating: not at all 6. Feeling bad about yourself - or that you are a failure or have let yourself or your family down: not at all 7. Trouble concentrating on things, such as reading the newspaper or watching television: not at all 8. Moving or speaking so slowly that other people could have noticed. Or the opposite - being so fidgety or restless that you have been moving around a lot more than usual: not at all 9. Thoughts that you would be better off or of hurting yourself in some way: not at all Total score: 0 Depression Screening Interpretation: Negative Depression Screening Done: Yes [id number] - PHQ-9 Billing: Yes Source: Developed by Drs. Raad Gregory, Elma Rees, Eddi Muse and colleagues, with an educational georgie from [employer]. Thrive Questionnaire Date Thrive assessed: 03/11/24 I am a: Patient What is your living situation today?: I have a steady place to live Within the past 12 months, did the food you bought not last and you didn't have the money to get more?: Never true Within the past 12 months, did you worry whether your food would run out before you got money to buy more?: Never true Do you have trouble paying for medicines?: No Do you have trouble getting transportation to medical appointments?: No Do you have trouble paying your heating and electricity bill?: No Do you have trouble taking care of your child, family member or friend?: No Do you have trouble with day-to-day activities such as bathing, preparing meals, shopping, managing finances, etc.?: No Are you currently unemployed and looking for a job?: No Are you interested in more education?: No Please select the resources that you would like help with: None Currently or been in a relationship where the following occur: no concerns reported THRIVE Score: 0 AUDIT C Alcohol Use Questionnaire (AUDIT-C) 1. How often do you have a drink containing alcohol?: Never 3. How often do you have six or more drinks on one occasion?: Never Total Score: 0 Score Reviewed/Action Taken: Yes JENI-7 AMB Questionnaire JENI-7 Date JENI - 7 assessed: 03/11/24 Feeling nervous, anxious, or on edge: 0 = Not at all Not being able to stop or control worryin = Not at all Worrying too much about different things: 0 = Not at all Trouble relaxin = Not at all Being so restless that it is hard to sit still: 0 = Not at all Becoming easily annoyed or irritable: 0 = Not at all Feeling afraid as if something awful might happen: 0 = Not at all Total JENI-7 score (0-4 normal; 5-9 mild; 10-14 moderate; 15-21 severe): 0 Source: Developed by Drs. Raad Gregory, Elma Rees, Eddi Muse and colleagues, with an educational georgie from [employer]. Review of Systems Const Denies chills, Denies fatigue, Denies fever(s), Denies headache(s), Denies mal aise and Denies weakness Eyes Denies blurry vision, Denies change in vision, Denies irritation and Denies itchy eyes ENT Denies dysphagia, Denies dizziness, Denies otalgia, Denies headache(s), Denies nasal congestion, Reports neck pain (on and off - see HPI), Denies odynophagia and Denies sore throat Card Denies chest pain, Denies rapid heart rate, Denies irregular heart rhythm, Denies palpitations and Denies dyspnea Resp Denies chest congestion, Denies cough, Denies dyspnea and Denies wheezing GI Denies abdominal pain, Denies bloating, Denies constipation, Denies dysphagia, Denies heartburn, Denies diarrhea, Denies nausea, Denies odynophagia and Denies vomiting Denies hematuria, Denies difficulty urinating, Denies dysuria, Denies urinary frequency and Denies urinary urgency Musc Denies back pain, Denies arthralgias, Denies joint swelling, Denies muscle weakness and Reports neck pain (on and off - see HPI) Skin/Breast Denies change in pigmentation, Denies lesions, Denies rash and Denies unusual bruising Neuro Denies dizziness, Denies headache(s), Denies convulsions, Reports paresthesias (on and off in both hands and arms - see HPI) and Denies weakness Endo Denies fatigue and Denies palpitations Aller/Immun Denies itchy eyes and Denies wheezing Physical exam (Primary Care) Vital Signs: Last Vital Signs Pulse 103 H 03/11/24 16:43 BP 116/68 03/11/24 16:43 Pulse Ox 98 03/11/24 16:43 Oxygen Delivery Method Room Air 03/11/24 16:43 BMI result Body Mass Index 51.2 Tobacco/Smoking Status: Tobacco use Status Tobacco use date assessed 03/11/24 03/11/24 16:44 Patient Tobacco Use Status Never used Tobacco 03/11/24 16:54 e-Cigarette/Vaping Use Never Used 03/11/24 16:44 PHQ-9: PHQ-9 Score PHQ-9: Total score 0 03/11/24 17:39 Depression Screening Interpretation: Negative Thrive Assessment: Date of Thrive Assessment Date Thrive assessed 03/11/24 03/11/24 16:44 Currently or been in a relationship where the following occur: no concerns reported Const General: no acute distress, alert and awake Orientation/consciousness: patient oriented x3 HENMT Head: Yes normocephalic and Yes atraumatic Ears: external ears normal, TM's normal bilaterally and EAC's normal General nose exam: No nasal discharge present Face and sinus: Yes normal facial exam and Yes sinuses nontender Teeth and gingiva: dentition normal Throat: Yes posterior oropharynx normal and Yes tonsils normal (no TP congestion) Eyes Eyelids: Yes eyelids normal Conjunctivae: conjunctivae normal Pupils: Equal, round and reactive pupils present EOM: EOMs intact bilaterally Neck Neck: Yes no lymphadenopathy and Yes supple Thyroid: Thyroid normal Resp Auscultation: clear to auscultation bilaterally, no rales and no wheezes Cardio Rate: regular rate Rhythm: regular rhythm Heart sounds: no murmurs GI Palpation (GI): Soft to palpation, nontender and No hepatosplenomegaly present Auscultation: normal bowel sounds General: Yes no CVA tenderness Back/Spine/Pelvis Back: no CVA tenderness Cervical Spine: No Cervical spine tenderness Thoracic/Lumbar Spine: thoracic and lumbar spine normal to inspection Skin Lesions: no lesions Rashes: no rashes Neuro General: patient oriented x3, moves all extremities, no focal motor deficits and CN's II-XI intact bilaterally Cranial nerves: Yes Equal, round and reactive pupils present Cognition (Neuro): normal cognition Gait exam (Neuro): Normal gait present Extrem General: Yes no clubbing, cyanosis or edema Assessment and Plan Assessment & Plan (1) Annual physical exam: Code(s): Z00.00 - Encounter for general adult medical examination without abnormal findings Plan: Check labs (2) Alpha thalassemia trait: Code(s): D56.3 - Thalassemia minor Plan: His Hgb electrophoresis done in August 2023 revealed findings suggestive of either iron deficiency or alpha thalassemia trait His iron function studies in August 2023 came back normal He is reassured that alpha thalassemia trait is a benign condition with no [facility] health impact for him but he should consider genetic testing at some point in the future for his children's and grandchildren's sake (3) Neck pain: Code(s): M54.2 - Cervicalgia Plan: His cervical spine exam done today is normal - non-tender, but with his recurrent symptoms, will send him for cervical spine x-rays for further evaluation (4) Epilepsy: Comment: Episode of AMS on 08/23/23 and 08/24/23 Code(s): G40.909 - Epilepsy, unspecified, not intractable, without status epilepticus Qualifiers: Epilepsy type: unspecified Intractability: not intractable Status epilepticus: without status epilepticus Qualified Code(s): G40.909 - Epilepsy, unspecified, not intractable, without status epilepticus Plan: Head CT done at the ER last year (2022) came out normal Labs done back then were also mostly normal States that he has not had any seizures since he was last seen in August 2023 He was referred to neurology then for further evaluation and management (he has been advised that he will likely need EEG done at some point) He was seen by neurology in November 2023 and was sent for some diagnostic tests, including a brain MRI and EEG and he will be following up with neurology again next month (March 2024) (5) Asthma: Comment: states that he has not had any issues lately Code(s): J45.909 - Unspecified asthma, uncomplicated Qualifiers: Asthma severity: mild Asthma persistence: intermittent Asthma complication type: uncomplicated Qualified Code(s): J45.20 - Mild intermittent asthma, uncomplicated Plan: Patient states that he mostly had asthma as a child and has not needed to use any rescue inhaler over the years (6) Paresthesia: Code(s): R20.2 - Paresthesia of skin Plan: Discussed that this is most likely just due to the fact that he is sleeping with his arms caught under him and should be of no concern Will send him for some additional labs for further evaluation (7) Morbid obesity with BMI of 50.0-59.9, adult: Code(s): E66.01 - Morbid (severe) obesity due to excess calories; Z68.43 - Body mass index [BMI] 50.0-59.9, adult Plan: Reinforced diet/exercise as tolerated/lose weight States that he was contacted by weight management recently that they are currently only seeing patients for surgical / bariatric weight management at this time - patient states that he is not interested in the surgical option Plan Follow up in 6 months Orders: Orders Complete Blood Count Auto Diff Today D64.9 - Anemia, unspecified, R20.2 - Paresthesia of skin, Z00.00 - Encounter for general adult medical examination without abnormal findings Comprehensive Met. Panel Today R20.2 - Paresthesia of skin, Z00.00 - Encounter for general adult medical examination without abnormal findings TSH reflex Free T4 Today R20.2 - Paresthesia of skin, Z00.00 - Encounter for general adult medical examination without abnormal findings UA CC w/rflx Micro + Cult Today R30.0 - Dysuria, Z00.00 - Encounter for general adult medical examination without abnormal findings XR cervical spine 3V Today M54.2 - Cervicalgia Erythrocyte Sedimentation Rate Today M79.7 - Fibromyalgia, R20.2 - Paresthesia of skin Vitamin B12 and Folate Today E53.8 - Deficiency of other specified B group vitamins, R20.2 - Paresthesia of skin C Reactive Protein Today R20.2 - Paresthesia of skin Vitamin D 25-OH Total Today E55.9 - Vitamin D deficiency, unspecified, R20.2 - Paresthesia of skin Cholesterol Today Z00.00 - Encounter for general adult medical examination without abnormal findings Coding Level of Care Code Est Pt Prev Care 18-39y([id number]) Diagnoses Annual physical exam Z00.00 Alpha thalassemia trait D56.3 Neck pain M54.2 Nonintractable epilepsy without status epilepticus, unspecified epilepsy type G40.909 Epilepsy type: unspecified Intractability: not intractable Status epilepticus: without status epilepticus Mild intermittent asthma without complication J45.20 Asthma severity: mild Asthma persistence: intermittent Asthma complication type: uncomplicated Paresthesia R20.2 Morbid obesity with BMI of 50.0-59.9, adult E66.01; Z68.43
== END 2024-03-11 17:43 | disposition home or self-care (01) ==
PROVIDERS: PCP Internal Medicine; Visit Provider Internal Medicine
DX: Z00.00 Encounter for general adult medical examination without abnormal findings (principal); G40.909 Epilepsy, unspecified, not intractable, without status epilepticus; E66.01 Morbid (severe) obesity due to excess calories; Z68.43 Body mass index [BMI] 50.0-59.9, adult; D56.3 Thalassemia minor; M54.2 Cervicalgia; J45.20 Mild intermittent asthma, uncomplicated; R20.2 Paresthesia of skin
CPT/HCPCS: 99395

== ENCOUNTER 2024-04-18 13:56 | Outpatient (AMB) | payer OTHER, SELFPAY ==
[2024-04-18 13:58] VITALS: BP 136/82; PULSE 86; BMI 50.2
--- NOTE | 2024-04-18 13:58 | A.OFFVIS_ITS ---
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 He is a pleasant 29-year-old male with history of morbid obesity, in December sleep study which shows severe sleep apnea he has not had any follow-up after that, anemia. He said August he was trying to lose weight with intermittent fasting. He had not eaten in the prior day and subsequently following day was made him with his friend. They went out to eat and he had to sodas and to be reduced to eat and subsequently felt like a bubble in his chest and to the left shoulder area and fell full and then subsequently he said he lost conversation thread with his friend. His friend notice that he had lost consciousness he was grunting and having stiff lower and upper extremities. He was not responding and the whole episode lasted for a minute. He came about since then and has had no recurrent episode. He said he has since then been trying to lose weight. Has been trying religiously to exercise. Denies any exertional chest pain or shortness of breath. No orthopnea, PND, leg edema. Currently not taking any vaso active medications [facility] Medical History Vitamin D deficiency Epilepsy Morbid obesity with BMI of 50.0-59.9, adult Alpha thalassemia trait Obesity (BMI 30-39.9) Asthma Surgical History No pertinent past surgical history Family History Other Diabetes Hypertension Social History Housing: House Patient Tobacco Use Status: Never used Tobacco e-Cigarette/Vaping Use: Never Used service: No Current occupational status: employed and unemployed Cognitive needs: No Hearing needs: No Vision needs: No Review of Systems Const Denies chills, Denies daytime sleepiness, Denies fatigue, Denies fever(s), Denies frequent falls, Denies poor appetite, Denies snoring, Denies stops breathing during sleep, Denies weakness, Denies weight gain and Denies weight loss Eyes Denies loss of vision ENT Denies dizziness and Denies hearing loss Card Denies chest pain, Denies claudication, Denies leg edema, Denies lightheadedness, Denies palpitations, Denies dyspnea, Denies dyspnea on exertion and Denies orthopnea Resp Denies cough, Denies excessive phlegm production, Denies dyspnea, Denies dyspnea on exertion, Denies snoring and Denies wheezing GI Denies abdominal pain, Denies hematochezia, Denies change in bowel habits, Denies nausea and Denies vomiting Denies dysuria and Denies urinary frequency Musc Denies arthralgias, Denies muscle weakness, Denies numbness and Denies other (frequent falls) Skin/Breast Denies nail changes and Denies rash Neuro Denies Abnormal speech present, Denies dizziness, Denies frequent falls, Denies loss of vision, Denies memory loss, Denies numbness and Denies weakness Psych Denies depression and Denies memory loss Endo Denies fatigue and Denies palpitations Marcel/Lymph Reports easy bruising and Reports other (anemia) Aller/Immun Denies wheezing Physical Exam Vital Signs: Last Vital Signs Pulse 86 04/18/24 13:58 BP 136/82 04/18/24 13:58 BMI result Body Mass Index 50.2 Const General: cooperative, comfortable, no acute distress, alert, awake and Physically active Nutritional Appearance: obese morbidly obese Orientation/consciousness: patient oriented x3 Limitations: no limitations HEENT Head: Yes normocephalic and Yes atraumatic Neck Neck: Yes trachea midline, Yes supple and Yes no JVD Resp Effort & Inspection: normal respiratory effort Auscultation: clear to auscultation bilaterally Cardio Jugular venous distension: no JVD Palpation: normal PMI Rate: regular rate Rhythm: regular rhythm Heart sounds: S1 normal heart sound present, S2 normal heart sound present, no click, no gallops and no murmurs GI Inspection: Yes obesity Skin General skin exam: no rashes or lesions noted Neuro General: patient oriented x3 and no focal motor deficits Speech: No Abnormal speech present Extrem General: Yes no clubbing, cyanosis or edema Psych Appearance: grossly normal Office Procedures EKG Details: EKG shows normal sinus rhythm with sinus arrhythmia without any QT prolongation or pre-excitation [id number], Complete Assessment & Plan Assessment & Plan (1) Syncope: Code(s): R55 - Syncope and collapse Category: Medical Plan: Syncope in setting of sudden gastric distention, most suggestive of vasovagal/reflex syncope. Mechanism of vasovagal syncope was discussed with him in details. Reason for a vasovagal syncope was discussed. Advised to avoid sudden noxious stimuli although this will not be always avoidable. Advised to maintain adequate hydration. Overall benign nature of vasovagal syncope was discussed. Advised to seek sitting or lying position if he gets symptomatic and has a prodrome in future. No pharmacotherapy is being recommended. Advise echocardiogram to rule out any structural heart abnormality given his morbid obesity as well as untreated sleep apnea. This needs to be treated aggressively. Also will obtain Holter monitor to rule out any significant arrhythmias especially Nader arrhythmias. This was discussed with him as well. In the long run is biggest comorbidities morbid obesity. Advise him to participate in continuous and regular and significant weight loss program. He said he understands agrees. If he has recurrent events would consider head-up tilt-table test. Will follow up in the clinic if 1 year, sooner p.r.n.. Thank you for allowing me to partake in his care Orders: Orders CA echo transthoracic complete Today R55 - Syncope and collapse ECG 3 day holter monitor Today R55 - Syncope and collapse Coding Level of Care Code New Pt Level 4 (88969) Diagnoses Syncope R55 CPT Codes EKG - CPT: 95986-[id number], Complete ([id number])
== END 2024-04-18 14:41 | disposition home or self-care (01) ==
PROVIDERS: PCP Internal Medicine; Visit Provider Internal Medicine Cardiovascular Disease
DX: R55 Syncope and collapse (principal)
CPT/HCPCS: 93010; 99204

== ENCOUNTER → 2024-04-18 13:56 | Outpatient (BNVA) | payer OTHER, SELFPAY | PROVIDERS: PCP Internal Medicine; Visit Provider Internal Medicine Cardiovascular Disease | DX: R55 Syncope and collapse (principal) | CPT/HCPCS: 93005; 99202 ==

== ENCOUNTER 2024-05-04 10:02 | Outpatient (REF) | payer OTHER, SELFPAY ==
--- NOTE | ~2024-05-04 | XR_ITS ---
EXAMINATION: XR CERVICAL SPINE CLINICAL INFORMATION: Neck pain. COMPARISON: None available. TECHNIQUE: 5 views of the cervical spine. FINDINGS: Limited visualization of C6 and C7 due to overlying bony and soft tissue structures. Mild anterior loss of height most notable at the C3 vertebral body of indeterminate age and etiology. Imaged cervical disc space heights are preserved. Slight straightening of the normal cervical lordosis. XR/XR cervical spine 3V IMPRESSION: Limited visualization of C6 and C7 due to overlying bony and soft tissue structures. Mild anterior loss of height, most notable at the C3 vertebral body of indeterminate age and etiology. Correlation with clinical exam recommended to determine further management including possible additional imaging with CT scan or MRI. Electronically signed by: Regi Kendall MD 05/31/2024 10:35 AM EDT
[2024-05-04 10:24] LABS: MANUAL DIFF FLAG NO
[2024-05-04 10:48] LABS: Basophils Percent Auto 0.5 % (0-2); Eosinophils Absolute Auto 0.1 X10*3/uL (0.0-0.4); Eosinophils Percent Auto 1.8 % (0-4); Hematocrit 41.8 % (42.0-52.0); Hemoglobin 13.2 g/dl (14.0-18.0); Imm Gran Abs Auto 0.03 X10*3/uL (0.00-0.03); Imm Gran Pct Auto 0.4 % (0.0-0.4); Lymphocytes Absolute Auto 2.7 X10*3/uL (1.2-4.9); Lymphocytes Percent Auto 35.4 % (20-40); Mean Corpuscular HGB Conc 31.6 g/dl (31.0-36.0); Mean Corpuscular Hemoglobin 22.4 pg (27.0-33.0); Mean Corpuscular Volume 70.8 fL (80.0-98.0); Mean Platelet Volume 9.8 fL (9.4-12.4); Monocytes Absolute Auto 0.7 X10*3/uL (0.1-1.2); Monocytes Percent Auto 8.5 % (2-11); Neutrophils Absolute Auto 4.1 x10*3/uL (2.0-8.3); Neutrophils Percent Auto 53.4 % (45-73); Platelet Count 195 X10*3/uL (160-400); Red Cell Distribution Width 15.5 % (11.0-16.0); White Blood Count 7.6 X10*3/uL (4.8-10.8)
[2024-05-04 11:22] LABS: Alanine Aminotransferase 21 U/L (0-40); Alkaline Phosphatase 95 U/L (39-117); Anion Gap 11 (12-20); Aspartate Amino Transferase 19 U/L (5-37); Bilirubin Total 0.3 mg/dL (0.0-1.0); Blood Urea Nitrogen 14 mg/dL (9-16); C Reactive Protein 0.31 mg/dL (< or = 0.50); Calcium 8.7 mg/dL (8.4-10.2); Carbon Dioxide 26 mmol/L (22-29); Chloride 106 mmol/L (96-108); Cholesterol 160 mg/dL (<200); Estimated Glomerular Filt Rate > 60; Glucose Random 90 mg/dL (60-115); Potassium 3.8 mmol/L (3.3-5.1); Sodium 139 mmol/L (135-145); Total Protein 7.3 g/dL (6.5-8.0)
[2024-05-04 11:32] LABS: Erythrocyte Sedimentation Rate 3 MM/HR (0-15)
[2024-05-04 11:40] LABS: TSH reflex Free T4 1.27 uIU/mL (0.32-4.0); Vitamin D 25-OH Total 31.4 ng/mL (>30)
[2024-05-04 11:48] LABS: Folate 12.9 ng/mL (> or = 4.0); Vitamin B12 699 pg/mL (200-900)
[2024-05-04 12:25] LABS: Appearance Urine Clear; Color Urine Yellow; Glucose Urine UA Negative (Negative); Leukocyte Esterase Urine Negative (Negative); Nitrite Urine Negative (Negative); Specific Gravity - Urine 1.025 (1.005-1.025); Urine Blood Negative (Negative); Urine Ketones Trace mg/dL (Negative); Urine Protein Negative (Neg-Trace)
== END 2024-05-04 10:03 | disposition home or self-care (01) ==
LOC: HO.LAB 10:02
PROVIDERS: PCP Internal Medicine; Visit Provider Internal Medicine
DX: M54.2 Cervicalgia (principal); R20.2 Paresthesia of skin; E55.9 Vitamin D deficiency, unspecified; M79.7 Fibromyalgia; D64.9 Anemia, unspecified; R30.0 Dysuria; E53.8 Deficiency of other specified B group vitamins; Z00.00 Encounter for general adult medical examination without abnormal findings
CPT/HCPCS: 36415; 72040; 80053; 81003; 82306; 82465; 82607; 82746; 84443; 85025; 85652; 86140

== ENCOUNTER → 2024-08-01 09:57 | Outpatient (REF) | payer OTHER, SELFPAY ==
--- NOTE | 2024-08-01 10:01 | CA_ITS ---
Transthoracic Echocardiogram Patient (Last, First, Middle): Lorrie Lainez, Gender: Male Date of : 1995 Age: 29 Procedure Date: 08/01/2024 Procedure Type: Transthoracic Echocardiogram Location: OP Height: 170.18 cm Weight: 147.42 kg BSA: 2.49 m2 Heart Rate: 83 bpm BP: 138 / 72 mmHg Quality Manager: WILBUR Referring MD: Bruce Hughes MD Symptoms: R55 - Syncope and collapse Study Quality: Fair ECG Rhythm: Sinus Conclusions: - The left ventricular systolic function is mildly decreased. The calculated ejection fraction is 43% by biplane method. - No obvious valvular pathology seen on this study. Findings Procedure Information Contrast agent, definity, is being given per protocol without apparent complications. The quality of the study was technically difficult. The study quality is limited by patients body habitus. Left Ventricle The left ventricular systolic function is mildly decreased. The calculated ejection fraction is 43% by biplane method. There is mild global hypokinesis. Diastolic function is normal for age. Due to suboptimal image quality, difficult to assess wall thickness as well as for regional wall motion abnormalities. Grossly normal LV size. Right Ventricle Normal right ventricular cavity size and systolic function. Atria Both atria are normal in size. Aortic Valve There is a normal trileaflet aortic valve. There is no aortic valve stenosis. There is no aortic valve regurgitation. Mitral Valve The mitral valve appears normal. There is no mitral valve regurgitation. There is no mitral valve stenosis. Pulmonic Valve The pulmonic valve is likely normal. Tricuspid Valve There is no tricuspid valve regurgitation. Tricuspid regurgitation envelope is inadequate for calculation of right ventricular systolic pressure. Great Vessels The aortic annulus, sinuses of valsalva, and asc aorta are normal in size. Venous The inferior vena cava was not well visualized. Pericardium/Pleural There is no evidence of pericardial effusion. Prior Study Comparison No prior study available for comparison. Recommendations, Care & Conclusions No obvious valvular pathology seen on this study. Measurements 2D Linear Measurements LVOT Diam: 2.30 3.0+(-)1.3 cm 2D Systolic Function EF 4C: 39.30 >55% EF 2C: 44.60 >55% EF BiP: 43.00 >55% Mitral Valve MV Pk E: 0.63 MV PK A: 0.43 MV Decel Time: 114.00 E/A: 1.50 E'Lateral: 10.60 E'Medial: 8.70 E/E' Med: 7.20 E/E' Lat: 5.90 PHT: 33.00 MVA PHT: 6.67 Decel Cidra: 5.51 Aortic Valve AoV Pk Pablo: 0.86 AoV Pk Grad: 3.00 BANDAR: 4.10 LVOT LVOT Pk Pablo: 0.85 LVOT Mn Pablo: 0.56 LVOT VTI: 0.15 LVOT Pk Grad: 3.00 LVOT Mn Grad: 2.00 LVOT Diam: 2.30 LVOT Area: 4.15 Diastolic Function MV Pk E: 0.63 MV Pk A: 0.43 E/A: 1.50 E'Medial: 8.70 E/E' Med: 7.20 E' Laterial: 10.60 E/E' Lat: 5.90 Right Ventricle TVS' Pablo: 12.00 Tricuspid Valve RA Press: 3.00 Great Vessels Aorta Sinus of Valsalva: 3.50 2.0-3.5 cm Ao Asc: 3.30 2.1-3.4 cm Pulmonary Valve PV Pk Pablo: 0.99 Peak PV Grad: 4.00 Updated in Other Vendor System with Status of Final Jabari Griggs MD electronically signed on 08/02/2024 8:12:53 AM with status of Final
--- NOTE | 2024-08-01 10:01 | HM_ITS ---
* Total monitoring time 3 days. * Underlying rhythm is sinus with an average rate of 90/Min. * Rare supraventricular and ventricular ectopy. * No significant pauses or high-grade AV blocks. * No patient markers or diary events. MTDD
== END ==
LOC: HO.CARD 09:57
PROVIDERS: PCP Internal Medicine; Visit Provider Internal Medicine Cardiovascular Disease
DX: R55 Syncope and collapse (principal)
CPT/HCPCS: 93242; 93306; Q9957

== ENCOUNTER → 2024-08-01 10:01 | Outpatient (BNV) | payer OTHER, SELFPAY | PROVIDERS: PCP Internal Medicine; Visit Provider Internal Medicine | DX: I47.10 Supraventricular tachycardia, unspecified (principal); I49.3 Ventricular premature depolarization | CPT/HCPCS: 93244; 93306 ==

== ENCOUNTER 2024-09-12 10:01 | Outpatient (AMB) | payer OTHER, SELFPAY ==
--- NOTE | 2024-09-12 10:02 | MHC.PC.OV ---
Vital Signs 09/12/24 10:03 Height 5 ft 6 in Weight 327 lb 6 oz BMI 52.8 BP 116/80 Blood Pressure Location Lt brachial Position Sitting Pulse 101 H Pulse Source Pulse Oximeter Pulse Oximetry (%) 98 Oxygen Delivery Method Room Air Intake Visit Reasons: 6mof\u Risk Assessment Consultant Required: No Accompanied by: Self / Same As Patient Allergies No Known Allergies Allergy (Verified 09/12/24 10:28) Medication List - Last Reconciled 09/12/24 by Guanako Rodriguez MD cholecalciferol (vitamin D3) 50 mcg PO DAILY 90 days vitamin B complex 1 tab PO DAILY Tobacco use date assessed: 09/12/24 Dental Screening Dental Screen Date: 09/12/24 Did you have a dental visit in the last 12 months?: Yes Did you have a dental problem in the last 6 months where you did not have access to dental care?: No Was dental information given to patient?: Patient has dentist HPI 6mof\u HPI Details Patient comes in today for his follow up visit States that he presently feels okay except for a possible sinus infection States that he's had increased nasal and sinus congestion for over 3 weeks now Relates (+) frequent pressure and discomfort behind his eyes and in his sinuses, with occasional headaches lately He denies any fever or sore throat; denies any dizziness and denies SOB He was seen by neurology back in November 2023 for further evaluation of some vague symptoms of difficulty concentrating and what may have been some TIA symptoms that occurred/started late last year He had a head CT done in August 2023 that came back negative He was referred for extended Holter monitoring for further evaluation, which came back normal MRI of the head was apparently denied by his insurance Sleep study done in December 2023 showed (+) severe ESTEPHANIE - he has not yet followed up with Sleep Medicine for initiation of CPAP Tx - next appt with Sleep Medicine is in December 2024 He was seen by cardiology for consultation regarding his above symptoms from late last year and was determined that his symptoms may have been mostly vasovagal in etiology He was sent for echocardiogram to complete his evaluation and his echo came back showing reduced EF at 43% with mild global hypokinesia He is currently scheduled for nuclear stress testing in October 2024 for further evaluation He continues to experience frequent pain over the back of his neck and would like to know how his cervical spine x-rays done a few months ago came out He denies any chest pains No nausea/vomiting, no abdominal pain No change in bowel habits noted [facility] Medical History (Updated 09/12/24 @ 12:24 by Guanako Rodriguez MD) Cardiomyopathy Obstructive sleep apnea hypopnea, severe Vitamin D deficiency Epilepsy Morbid obesity with BMI of 50.0-59.9, adult Alpha thalassemia trait Obesity (BMI 30-39.9) Asthma Surgical History No pertinent past surgical history Family History Other Diabetes Hypertension Social History Housing: House Patient Tobacco Use Status: Never used Tobacco e-Cigarette/Vaping Use: Never Used service: No Current occupational status: employed and unemployed Cognitive needs: No Hearing needs: No Vision needs: No Questionnaire PHQ-9 Over the last 2 weeks, how often have you been bothered by any of the following problems? 1. Little interest or pleasure in doing things: not at all 2. Feeling down, depressed, or hopeless: not at all 3. Trouble falling or staying asleep, or sleeping too much: not at all 4. Feeling tired or having little energy: not at all 5. Poor appetite or overeating: not at all 6. Feeling bad about yourself - or that you are a failure or have let yourself or your family down: not at all 7. Trouble concentrating on things, such as reading the newspaper or watching television: not at all 8. Moving or speaking so slowly that other people could have noticed. Or the opposite - being so fidgety or restless that you have been moving around a lot more than usual: not at all 9. Thoughts that you would be better off or of hurting yourself in some way: not at all Total score: 0 Depression Screening Interpretation: Negative Depression Screening Done: Yes 76980 - PHQ-9 Billing: Yes Source: Developed by Drs. Raad Gregory, Elma Rees, Eddi Muse and colleagues, with an educational georgie from [email or web address]. Thrive Questionnaire Date Thrive assessed: 09/12/24 I am a: Patient What is your living situation today?: I have a steady place to live Within the past 12 months, did the food you bought not last and you didn't have the money to get more?: Never true Within the past 12 months, did you worry whether your food would run out before you got money to buy more?: Never true Do you have trouble paying for medicines?: No Do you have trouble getting transportation to medical appointments?: No Do you have trouble paying your heating and electricity bill?: No Do you have trouble taking care of your child, family member or friend?: No Do you have trouble with day-to-day activities such as bathing, preparing meals, shopping, managing finances, etc.?: No Are you currently unemployed and looking for a job?: No Are you interested in more education?: No Please select the resources that you would like help with: None Currently or been in a relationship where the following occur: No concerns reported THRIVE Score: 0 AUDIT C Alcohol Use Questionnaire (AUDIT-C) 1. How often do you have a drink containing alcohol?: Never 3. How often do you have six or more drinks on one occasion?: Never Total Score: 0 Score Reviewed/Action Taken: Yes JENI-7 AMB Questionnaire JENI-7 Date JENI - 7 assessed: 09/12/24 Feeling nervous, anxious, or on edge: 0 = Not at all Not being able to stop or control worryin = Not at all Worrying too much about different things: 0 = Not at all Trouble relaxin = Not at all Being so restless that it is hard to sit still: 0 = Not at all Becoming easily annoyed or irritable: 0 = Not at all Feeling afraid as if something awful might happen: 0 = Not at all Total JENI-7 score (0-4 normal; 5-9 mild; 10-14 moderate; 15-21 severe): 0 Source: Developed by Drs. Raad Gregory, Elma Rees, Eddi Muse and colleagues, with an educational georgie from [email or web address]. Review of Systems Const Denies chills, Denies fatigue, Denies fever(s) and Reports headache(s) (occasionally ) ENT Denies dysphagia, Denies dizziness, Denies otalgia, Reports headache(s) (occasionally ), Reports nasal congestion, Reports neck pain (on and off), Denies odynophagia, Reports sinus pain, Reports sinus pressure and Denies sore throat Card Denies chest pain, Denies rapid heart rate, Denies irregular heart rhythm, Denies palpitations and Denies dyspnea Resp Denies chest congestion, Denies cough and Denies dyspnea GI Denies abdominal pain, Denies constipation, Denies dysphagia, Denies heartburn, Denies diarrhea, Denies nausea, Denies odynophagia and Denies vomiting Denies hematuria, Denies difficulty urinating, Denies dysuria and Denies urinary frequency Musc Denies back pain, Denies arthralgias and Reports neck pain (on and off) Skin/Breast Denies rash Neuro Denies dizziness, Reports headache(s) (occasionally ), Denies convulsions and Reports paresthesias (on and off in both hands and arms ) Endo Denies fatigue and Denies palpitations Physical exam (Primary Care) Vital Signs: Last Vital Signs Pulse 101 H 09/12/24 10:03 BP 116/80 09/12/24 10:03 Pulse Ox 98 09/12/24 10:03 Oxygen Delivery Method Room Air 09/12/24 10:03 BMI result Body Mass Index 52.8 Tobacco/Smoking Status: Tobacco use Status Tobacco use date assessed 09/12/24 09/12/24 10:09 Patient Tobacco Use Status Never used Tobacco 09/12/24 10:09 e-Cigarette/Vaping Use Never Used 09/12/24 10:09 PHQ-9: PHQ-9 Score PHQ-9: Total score 0 09/12/24 11:48 Depression Screening Interpretation: Negative Thrive Assessment: Date of Thrive Assessment Date Thrive assessed 09/12/24 09/12/24 10:09 Currently or been in a relationship where the following occur: No concerns reported Const General: no acute distress and alert HENMT Throat: Yes posterior oropharynx normal and Yes tonsils normal (no TP congestion) Neck Neck: Yes no lymphadenopathy and Yes supple Thyroid: Thyroid normal Resp Auscultation: clear to auscultation bilaterally, no rales and no wheezes Cardio Rate: regular rate Rhythm: regular rhythm Heart sounds: no murmurs GI Palpation (GI): Soft to palpation and nontender Auscultation: normal bowel sounds General: Yes no CVA tenderness Back/Spine/Pelvis Back: no CVA tenderness Cervical Spine: No Cervical spine tenderness Thoracic/Lumbar Spine: thoracic and lumbar spine normal to inspection Skin Rashes: no rashes Neuro General: moves all extremities, no focal motor deficits and CN's II-XI intact bilaterally Cognition (Neuro): normal cognition Gait exam (Neuro): Normal gait present Extrem General: Yes no clubbing, cyanosis or edema Coding Level of Care Code Est Pt Level 4 (61642) Diagnoses Transient alteration of awareness R40.4 Altered mental status type: transient alteration of awareness Cardiomyopathy, unspecified type I42.9 Cardiomyopathy type: unspecified Mild intermittent asthma without complication J45.20 Asthma complication type: uncomplicated Asthma persistence: intermittent Asthma severity: mild Obstructive sleep apnea hypopnea, severe G47.33 Alpha thalassemia trait D56.3 Neck pain M54.2 Acute non-recurrent sinusitis, unspecified location J01.90 Sinusitis location: unspecified location Chronicity: acute Recurrence: non-recurrent Vitamin D deficiency E55.9 Morbid obesity with BMI of 50.0-59.9, adult E66.01; Z68.43 Additional Codes PHQ-9 - 88199 - PHQ-9 Billing: Yes ([id number]) Assessment & Plan Assessment & Plan (1) Altered mental status, unspecified: Comment: Episode of AMS on 08/23/23 and 08/24/23 Code(s): R41.82 - Altered mental status, unspecified Category: Medical Qualifiers: Altered mental status type: transient alteration of awareness Qualified Code(s): R40.4 - Transient alteration of awareness Plan: He was seen and evaluated by neurology a few months ago - work ups done so far do not show any evidence of seizure/epilepsy and advised that his episodes are more likely from other causes and he was therefore referred to cardiology Patient declined offer to start him on anti-epileptic Tx at the time He was seen by cardiology a few months ago and was advised that his symptoms were likely vasovagal He was sent for echocardiogram and Holter monitor for completion of his evaluation His Holter monitor came back normal - predominantly sinus rhythm with rare ventricular and supraventricular ectopy Echocardiogram showed that the left ventricular systolic function is mildly decreased. The calculated ejection fraction is 43% by biplane method. There is mild global hypokinesia but the diastolic function is normal for age He is now scheduled to under nuclear stress testing in October 2024 for further evaluation (2) Cardiomyopathy: Code(s): I42.9 - Cardiomyopathy, unspecified Category: Medical Qualifiers: Cardiomyopathy type: unspecified Qualified Code(s): I42.9 - Cardiomyopathy, unspecified Plan: Patient's echocardiogram showed that the left ventricular systolic function is mildly decreased. The calculated ejection fraction is 43% by biplane method. There is mild global hypokinesia but the diastolic function is normal for age He is now scheduled to under nuclear stress testing in October 2024 for further evaluation Follow up with cardiology as scheduled (3) Asthma: Comment: states that he has not had any issues lately Code(s): J45.909 - Unspecified asthma, uncomplicated Category: Medical Qualifiers: Asthma complication type: uncomplicated Asthma persistence: intermittent Asthma severity: mild Qualified Code(s): J45.20 - Mild intermittent asthma, uncomplicated Plan: Patient states that he mostly had asthma as a child and has not needed to use any rescue inhaler over the years (4) Obstructive sleep apnea hypopnea, severe: Code(s): G47.33 - Obstructive sleep apnea (adult) (pediatric) Category: Medical Plan: Sleep study done in December 2023 revealed (+) severe ESTEPHANIE /he has not yet been started on CPAP therapy Follow up with Sleep Medicine as scheduled (5) Alpha thalassemia trait: Code(s): D56.3 - Thalassemia minor Category: Medical Plan: His Hgb electrophoresis done in August 2023 revealed findings suggestive of either iron deficiency or alpha thalassemia trait His iron function studies in August 2023 came back normal He therefore has alpha thalassemia trait, and is again reassured that this is a benign condition with no shelter health impact for him but he should consider genetic testing at some point in the future for his children's and grandchildren's sake No further work ups are indicated here (6) Neck pain: Code(s): M54.2 - Cervicalgia Category: Medical Plan: Cervical spine x-rays done in April 2024 revealed (+) mild anterior loss of height most notable at the C3 vertebral body of indeterminate age and etiology. Imaged cervical disc space heights are preserved. Slight straightening of the normal cervical lordosis As he continues to c/o recurrent neck pain and discomfort, will refer him for now to physical therapy for further evaluation and management (7) Sinusitis: Code(s): J32.9 - Chronic sinusitis, unspecified Category: Medical Qualifiers: Sinusitis location: unspecified location Chronicity: acute Recurrence: non-recurrent Qualified Code(s): J01.90 - Acute sinusitis, unspecified Plan: Will start him empirically on Augmentin 875 mg BID x 10 days (8) Vitamin D deficiency: Code(s): E55.9 - Vitamin D deficiency, unspecified Category: Medical Plan: Continue VitamiN D3 2000 units QD (9) Morbid obesity with BMI of 50.0-59.9, adult: Code(s): E66.01 - Morbid (severe) obesity due to excess calories; Z68.43 - Body mass index [BMI] 50.0-59.9, adult Category: Medical Plan: Reinforced diet/exercise as tolerated/lose weight Patient has requested for assistance in obtaining more education/teaching in terms of his diet and nutrition and how to help him lose weight appropriately and effectively Will try referring him for nutritional consult/evaluation Plan To return in March 2025 for his annual physical examination Orders: Orders PT Evaluation and Treatment Today M54.2 - Cervicalgia Referrals Nutrition/Dietitian Referral E66.01 - Morbid (severe) obesity due to excess calories, Z68.43 - Body mass index [BMI] 50.0-59.9, adult Medications: New amoxicillin-pot clavulanate 875-125 mg 1 tab PO BID 10 days 20 tabs 0RF
[2024-09-12 10:03] VITALS: BP 116/80; PULSE 101; O2SAT 98; BMI 52.8
== END 2024-09-12 10:43 | disposition home or self-care (01) ==
PROVIDERS: PCP Internal Medicine; Visit Provider Internal Medicine
DX: R40.4 Transient alteration of awareness (principal); I42.9 Cardiomyopathy, unspecified; E66.01 Morbid (severe) obesity due to excess calories; Z68.43 Body mass index [BMI] 50.0-59.9, adult; J45.20 Mild intermittent asthma, uncomplicated; G47.33 Obstructive sleep apnea (adult) (pediatric); D56.3 Thalassemia minor; M54.2 Cervicalgia; J01.90 Acute sinusitis, unspecified; E55.9 Vitamin D deficiency, unspecified

== ENCOUNTER → 2024-09-12 10:01 | Outpatient (BNVA) | payer OTHER, SELFPAY | PROVIDERS: PCP Internal Medicine; Visit Provider Internal Medicine | DX: R40.4 Transient alteration of awareness (principal); I42.9 Cardiomyopathy, unspecified; J45.20 Mild intermittent asthma, uncomplicated; G47.33 Obstructive sleep apnea (adult) (pediatric); D56.3 Thalassemia minor; M54.2 Cervicalgia; J01.90 Acute sinusitis, unspecified; E55.9 Vitamin D deficiency, unspecified; E66.01 Morbid (severe) obesity due to excess calories; Z68.43 Body mass index [BMI] 50.0-59.9, adult | CPT/HCPCS: 96127; 99212 ==

== ENCOUNTER 2024-10-17 13:33 | Outpatient (AMB) | payer OTHER, SELFPAY ==
[2024-10-17 13:39] VITALS: BMI 54.5
--- NOTE | 2024-10-17 13:39 | A.OFFVIS_ITS ---
VS Expanded 10/17/24 13:39 10/17/24 13:47 Height 5 ft 6 in 5 ft 6 in Weight 337 lb 11.971 oz 338 lb BMI 54.5 54.5 Intake Visit Reasons: Morbid (severe) obesity due to excess calories Allergies No Known Allergies Allergy (Verified 09/12/24 10:28) Nutrition Presentation Details: Pt presents for MNT for morbid obesity Pt is Lactose intolerant Pt reports working on having a meal routine tends to have increased appetite in the evening food frequency fruits: 0-1/d ve x/wk dairy - choosing lactose free starches > 40 serving/d protein : poultry/beef/eggs/ variety fried foods: 4x/wk pastries and similar 2x/d physical activity: 1-2 hr per week etoh/smoking-denies BS Monitoring Most Recent Diabetes Results: Cholesterol 160 mg/dL (<200) 05/04/24 Creatinine 0.94 mg/dL (0.5-1.4) 05/04/24 Blood Urea Nitrogen 14 mg/dL (9-16) 05/04/24 Sodium 139 mmol/L (135-145) 05/04/24 Potassium 3.8 mmol/L (3.3-5.1) 05/04/24 Chloride 106 mmol/L (96-108) 05/04/24 Carbon Dioxide 26 mmol/L (22-29) 05/04/24 Calcium 8.7 mg/dL (8.4-10.2) 05/04/24 AST 19 U/L (5-37) 05/04/24 ALT 21 U/L (0-40) 05/04/24 Total Protein 7.3 g/dL (6.5-8.0) 05/04/24 Albumin 4.0 g/dL (3.5-5.0) 05/04/24 PKL-Botnwye-Ny.Jeor Equation Height: 5 ft 6 in Weight: 338 lb Resting Metabolic Rate: 2451.52 Calculated Activity Level: Mild Activity Calories Needed to Maintain Weight: 3370.84 Diagnosis Nutrition problem #1: excessive energy intake As related to (etiology) #1: diagnosis As evidenced by (sign/symptom) #1: high BMI (54 on 10/15) [facility] Medical History (Updated 09/12/24 @ 12:24 by Guanako Rodriguez MD) Cardiomyopathy Obstructive sleep apnea hypopnea, severe Vitamin D deficiency Epilepsy Morbid obesity with BMI of 50.0-59.9, adult Alpha thalassemia trait Obesity (BMI 30-39.9) Asthma Surgical History No pertinent past surgical history Family History Other Diabetes Hypertension Social History Housing: House Patient Tobacco Use Status: Never used Tobacco e-Cigarette/Vaping Use: Never Used service: No Current occupational status: employed and unemployed Cognitive needs: No Hearing needs: No Vision needs: No Assessment & Plan Assessment & Plan (1) Morbid obesity with BMI of 50.0-59.9, adult: Code(s): E66.01 - Morbid (severe) obesity due to excess calories; Z68.43 - Body mass index [BMI] 50.0-59.9, adult Category: Medical Plan: Wt: 154 Kg ( 10/15) Est kcal needs as per MSJ: 3400 (40% carb, 30% protein/fat) Est fluid needs as per 25-30 ml/d: 4600 Est prot per day as per 1 g/kg bw: 154 Recommend fiber intake : 8-10 g per day and gradually increase to 25-28 g per day for women and 35-38 g for men or as tolerated Recommend sodium intake per day : less than 2300 mg Educated patient on: ( R = reviewed V = verbalizes understanding N/R = needs review N/A = not applicable * Food sources of carbohydrate, adequate serving sizes and its role in various health conditions: R * Differences between complex carbohydrates a simple carbohydrates, role of fiber in diet: R * Lean protein sources of foods: R * Differences between types of fats and role in diet (mono on saturated fat fatty acids, saturated fatty acids, trans fats): R basic * Food sources of sodium in salt and healthy modifications for heart health in kidney health: R V R/V * Vitamins and minerals: R V N/R * Healthy plate method concept: R V N/R * Physical activity: Benefits a precaution: R V N/R Patient Instructions: Count calories and Work on Reduce total calories by 500 -1000 less from high fat foods (choose baked potato in place of fries , have salad with chicken in place of fries with chicken , choose fruit/veg smoothies in place of pastries Coding Level of Care Code Nutr Indiv Intake (97166) Diagnoses Morbid obesity with BMI of 50.0-59.9, adult E66.01; Z68.43 Time Spent (min) 30
[2024-10-20 14:53] VITALS: BMI 54.5
== END 2024-10-17 14:47 | disposition home or self-care (01) ==
PROVIDERS: PCP Internal Medicine; Visit Provider Dietitian, Registered
DX: E66.01 Morbid (severe) obesity due to excess calories (principal); Z68.43 Body mass index [BMI] 50.0-59.9, adult

== ENCOUNTER → 2024-10-17 13:33 | Outpatient (BNVA) | payer OTHER, SELFPAY | PROVIDERS: PCP Internal Medicine; Visit Provider Dietitian, Registered | DX: E66.01 Morbid (severe) obesity due to excess calories (principal); Z71.3 Dietary counseling and surveillance; Z68.43 Body mass index [BMI] 50.0-59.9, adult | CPT/HCPCS: 97802 ==

== ENCOUNTER → 2024-11-14 08:00 | Outpatient (REF) | payer OTHER, SELFPAY ==
--- NOTE | 2024-11-14 08:05 | CA_ITS ---
Acquisition Time: 2024-11-14 08:19:18 Total Exercise Time: 00:06:00 Test Indications: CARDIOMYOPATHY Medications: Protocol: BANDAR Max HR: 173 BPM 89% of Pred: 193 BPM Max BP: 172/80 mmHG Max Work Load: 7.0 METS Exercise Stress Test with exercise 6 mins of Bandar Protocol, acheiving 89% MPHR, with reports of moderate SOB, no chest discomfort, with isolated PVC, with normotensive response to exercise. Without EKG changes meeting criteria for ischemia. In recovery, breathing returned to baseline. Nuclear images pending. Test reviewed with Dr. Griggs. Referred By: Bruce Hughes Electronically Signed By: Woo Cary
== END ==
LOC: HO.CARD 08:00
PROVIDERS: Visit Provider Internal Medicine Cardiovascular Disease
DX: I42.9 Cardiomyopathy, unspecified (principal); R51.9 Headache, unspecified; J45.20 Mild intermittent asthma, uncomplicated; R55 Syncope and collapse; E66.01 Morbid (severe) obesity due to excess calories; Z68.43 Body mass index [BMI] 50.0-59.9, adult
CPT/HCPCS: 93017; 93270; J0280; J2785

== ENCOUNTER → 2024-11-14 08:05 | Outpatient (BNV) | payer OTHER, SELFPAY | DX: R06.02 Shortness of breath (principal); I49.3 Ventricular premature depolarization | CPT/HCPCS: 93016; 93018 ==

== ENCOUNTER 2024-11-21 14:06 | Outpatient (AMB) | payer OTHER, SELFPAY ==
[2024-11-21 14:16] VITALS: BMI 54.1
--- NOTE | 2024-11-21 14:16 | A.OFFVIS_ITS ---
VS Expanded 11/21/24 14:16 Height 5 ft 6 in Weight 335 lb 5.169 oz BMI 54.1 Intake Visit Reasons: Morbid (severe) obesity due to excess calories Allergies No Known Allergies Allergy (Verified 09/12/24 10:28) Nutrition Presentation Details: Pt presents for MNT f/u for obesity Pt reports working on mindful eating, had challenges with meal choices due to travels, choosing higher fat foods. BS Monitoring Most Recent Diabetes Results: Cholesterol 160 mg/dL (<200) 05/04/24 Creatinine 0.94 mg/dL (0.5-1.4) 05/04/24 Blood Urea Nitrogen 14 mg/dL (9-16) 05/04/24 Sodium 139 mmol/L (135-145) 05/04/24 Potassium 3.8 mmol/L (3.3-5.1) 05/04/24 Chloride 106 mmol/L (96-108) 05/04/24 Carbon Dioxide 26 mmol/L (22-29) 05/04/24 Calcium 8.7 mg/dL (8.4-10.2) 05/04/24 AST 19 U/L (5-37) 05/04/24 ALT 21 U/L (0-40) 05/04/24 Total Protein 7.3 g/dL (6.5-8.0) 05/04/24 Albumin 4.0 g/dL (3.5-5.0) 05/04/24 [facility] Medical History (Updated 09/12/24 @ 12:24 by Guanako Rodriguez MD) Cardiomyopathy Obstructive sleep apnea hypopnea, severe Vitamin D deficiency Epilepsy Morbid obesity with BMI of 50.0-59.9, adult Alpha thalassemia trait Obesity (BMI 30-39.9) Asthma Surgical History No pertinent past surgical history Family History Other Diabetes Hypertension Social History Housing: House Patient Tobacco Use Status: Never used Tobacco e-Cigarette/Vaping Use: Never Used service: No Current occupational status: employed and unemployed Cognitive needs: No Hearing needs: No Vision needs: No Assessment & Plan Assessment & Plan (1) Morbid obesity with BMI of 50.0-59.9, adult: Code(s): E66.01 - Morbid (severe) obesity due to excess calories; Z68.43 - Body mass index [BMI] 50.0-59.9, adult Category: Medical Plan: Wt: 154 Kg ( 10/15), 152 kg (12/13) Est kcal needs as per MSJ: 3400 (40% carb, 30% protein/fat) Est fluid needs as per 25-30 ml/d: 4600 Est prot per day as per 1 g/kg bw: 154 Recommend fiber intake : 8-10 g per day and gradually increase to 25-28 g per day for women and 35-38 g for men or as tolerated Recommend sodium intake per day : less than 2300 mg Educated patient on: ( R = reviewed V = verbalizes understanding N/R = needs review N/A = not applicable * Food sources of carbohydrate, adequate serving sizes and its role in various health conditions: R * Differences between complex carbohydrates a simple carbohydrates, role of fiber in diet: R * Lean protein sources of foods: R * Differences between types of fats and role in diet (mono on saturated fat fatty acids, saturated fatty acids, trans fats): R basic * Food sources of sodium in salt and healthy modifications for heart health in kidney health: R V R/V * Vitamins and minerals: R V N/R * Healthy plate method concept: R V N/R * Physical activity: Benefits a precaution: R V N/R Patient Instructions: Carry a lunch bag with you , 3 times a week (sandwich on whole wheat bread, chicken and spinach as example / boiled eggs and can of fruit as example) Make a habit of carrying a lunch bag -see meal options Coding Level of Care Code Nutr Indiv Subseq (36520) Diagnoses Morbid obesity with BMI of 50.0-59.9, adult E66.01; Z68.43 Time Spent (min) 30
== END 2024-11-21 15:02 | disposition home or self-care (01) ==
PROVIDERS: PCP Internal Medicine; Visit Provider Dietitian, Registered
DX: E66.01 Morbid (severe) obesity due to excess calories (principal); Z68.43 Body mass index [BMI] 50.0-59.9, adult

== ENCOUNTER → 2024-11-21 14:06 | Outpatient (BNVA) | payer OTHER, SELFPAY | PROVIDERS: PCP Internal Medicine; Visit Provider Dietitian, Registered | DX: E66.01 Morbid (severe) obesity due to excess calories (principal); Z68.43 Body mass index [BMI] 50.0-59.9, adult | CPT/HCPCS: 97803 ==

== ENCOUNTER 2024-12-26 13:45 | Outpatient (AMB) | payer OTHER, SELFPAY ==
[2024-12-26 13:48] VITALS: BP 114/82; PULSE 86; BMI 54.2
--- NOTE | 2024-12-26 13:48 | A.OFFVIS_ITS ---
Vital Signs 12/26/24 13:48 Height 5 ft 6 in Weight 335 lb 15.752 oz BMI 54.2 BP 114/82 Blood Pressure Location Lt brachial Position Sitting Pulse 86 Pulse Source Pulse Oximeter Intake Visit Reasons: f/u after MARÍA Pmo Project Manager Required: No Allergies No Known Allergies Allergy (Verified 12/26/24 13:49) Medication List - Last Reconciled 12/26/24 by Gwendolyn Vasquez, JANE-C cholecalciferol (vitamin D3) 50 mcg PO DAILY 90 days vitamin B complex 1 tab PO DAILY HPI HPI f/u after MARÍA: Details: Lorrie is a 29-year-old male with past medical history of morbid obesity, sleep apnea, who has undergone cardiac evaluation for syncopal event. An echocardiogram had shown EF 43%. A nuclear stress test and cardiac event monitor was ordered on last visit and he now presents for follow-up. Today he reports that he was not able to complete the nuclear stress test due to significant claustrophobia. He has not had any recurrent presyncope or syncope. He denies any issues with chest discomfort at rest or with activity. He denies shortness of breath, PND, orthopnea or edema. No heart palpitations, lightheadedness. He goes to the gym 3 to 4 times a week. He is currently looking for a job. He says he is not being treated for his sleep apnea but has an upcoming appointment with a neurologist for this. [facility] Medical History Cardiomyopathy Obstructive sleep apnea hypopnea, severe Vitamin D deficiency Epilepsy Morbid obesity with BMI of 50.0-59.9, adult Alpha thalassemia trait Obesity (BMI 30-39.9) Asthma Surgical History No pertinent past surgical history Family History Other Diabetes Hypertension Social History Housing: House Patient Tobacco Use Status: Never used Tobacco e-Cigarette/Vaping Use: Never Used service: No Current occupational status: employed and unemployed Cognitive needs: No Hearing needs: No Vision needs: No Review of Systems Const All systems reviewed & are unremarkable except as noted in HPI and below ENT Denies dizziness Card Denies chest pain, Denies chest pain at rest, Denies chest pain with activity, Denies rapid heart rate, Denies pedal edema, Denies edema, Denies leg edema, Denies lightheadedness, Denies palpitations, Denies dyspnea, Denies dyspnea on exertion and Denies orthopnea Resp Denies cough, Denies dyspnea and Denies dyspnea on exertion GI Denies hematochezia and Denies change in stool character Musc Denies abnormal gait, Denies limited range of motion, Denies muscle cramps, Denies muscle weakness, Denies numbness, Denies radiating pain into limb, Denies stiffness and Denies tingling Neuro Denies abnormal gait, Denies dizziness, Denies numbness and Denies tingling Endo Denies palpitations Physical Exam Vital Signs: Last Vital Signs Pulse 86 12/26/24 13:48 BP 114/82 12/26/24 13:48 BMI result Body Mass Index 54.2 Const Other: morbid obesity General: cooperative, healthy appearing, comfortable and no acute distress Orientation/consciousness: patient oriented x3 Neck Neck: Yes normal visual inspection and Yes no JVD Resp Effort & Inspection: normal respiratory effort Auscultation: clear to auscultation bilaterally, no crackles, no rales, no rhonchi and no wheezes Cardio Rate: regular rate Rhythm: regular rhythm Heart sounds: S1 normal heart sound present, S2 normal heart sound present, no murmurs and no rubs Neuro General: patient oriented x3 Extrem General: Yes normal to inspection and No no pedal edema Psych Appearance: grossly normal Mental Status: mental status grossly normal Speech and movement: Normal speech and movement present Assessment & Plan Assessment & Plan (1) Syncope: Code(s): R55 - Syncope and collapse Category: Medical Plan: Syncopal event in the setting of gastric distension most suggestive of vasovagal/reflux syncope. He has not had recurrent events since that episode last summer. A Holter monitor was done 08/01/2025 for 3 days showing sinus rhythm with average heart rate 90, rare SVE and VE. A cardiac event monitor was done 11/14/2023 for 30 days, however 1 for 14 days showing sinus rhythm with average heart rate 92, heart rate range 50 to 150, sinus tach 53% of the time. - no arrhythmias noted that would contribute to syncopal events. Reviewed vasovagal syncope with him in the need to recognize triggers. If he has recurrent syncope then a tilt-table test will be ordered. (2) Cardiomyopathy: Code(s): I42.9 - Cardiomyopathy, unspecified Category: Medical Qualifiers: Cardiomyopathy type: unspecified Qualified Code(s): I42.9 - Cardiomyopathy, unspecified Plan: An echocardiogram 08/01/2024 showed EF 43%, technically difficult study. An exercise stress test was done 11/14/2024 for 6 minutes with moderate shortness of breath, no EKG changes. He was unable to complete the nuclear imaging due to claustrophobia. Since his echocardiogram was a difficult study will reassess with repeat limited echocardiogram to evaluate EF and wall motion. If EF remains down then will need to start on neurohormonal modulation for cardiomyopathy. He has cardiac risk factor of morbid obesity and has no anginal symptoms. Cardiomyopathy would be most likely related to his untreated sleep apnea. The benefit of weight loss, treatment for sleep apnea has been reviewed with him. (3) Obstructive sleep apnea hypopnea, severe: Code(s): G47.33 - Obstructive sleep apnea (adult) (pediatric) Category: Medical Plan: Sleep study from December 2023 shows severe sleep apnea. He has not had treatment as of yet. He tells me he has an upcoming visit with a neurologist for this problem. (4) Morbid obesity with BMI of 50.0-59.9, adult: Code(s): E66.01 - Morbid (severe) obesity due to excess calories; Z68.43 - Body mass index [BMI] 50.0-59.9, adult Category: Medical Plan: As above Plan Time spent on chart review, documentation, interview and assessment Orders: Orders CA Echo Limited Today I42.9 - Cardiomyopathy, unspecified Coding Level of Care Code Est Pt Level 4 (03319) Complex EM visit Add On G2211 Diagnoses Syncope R55 Cardiomyopathy, unspecified type I42.9 Cardiomyopathy type: unspecified Obstructive sleep apnea hypopnea, severe G47.33 Morbid obesity with BMI of 50.0-59.9, adult E66.01; Z68.43 Time Spent (min) 28
== END 2024-12-26 14:08 | disposition home or self-care (01) ==
LOC: HO.HCS 13:46
PROVIDERS: PCP Internal Medicine; Visit Provider Nurse Practitioner Family
DX: R55 Syncope and collapse (principal); I42.9 Cardiomyopathy, unspecified; G47.33 Obstructive sleep apnea (adult) (pediatric); E66.01 Morbid (severe) obesity due to excess calories; Z68.43 Body mass index [BMI] 50.0-59.9, adult
CPT/HCPCS: 99214; G2211

== ENCOUNTER → 2024-12-26 13:45 | Outpatient (BNVA) | payer OTHER, SELFPAY | PROVIDERS: PCP Internal Medicine; Visit Provider Nurse Practitioner Family | DX: E66.01 Morbid (severe) obesity due to excess calories (principal); G47.33 Obstructive sleep apnea (adult) (pediatric); R55 Syncope and collapse; I42.9 Cardiomyopathy, unspecified; Z68.43 Body mass index [BMI] 50.0-59.9, adult | CPT/HCPCS: 97803; 99212 ==

== ENCOUNTER 2024-12-26 14:12 | Outpatient (AMB) | payer OTHER, SELFPAY ==
[2024-12-26 14:15] VITALS: BMI 53.7
--- NOTE | 2024-12-26 14:15 | A.OFFVIS_ITS ---
VS Expanded 12/26/24 14:15 12/26/24 15:03 Height 5 ft 6 in 5 ft 6 in Weight 332 lb 14.368 oz 333 lb BMI 53.7 53.7 Intake Visit Reasons: obesity Allergies No Known Allergies Allergy (Verified 12/26/24 13:49) Nutrition Presentation Details: Pt presents for MNT for morbid obesity Pt reports working on including fruits daily 4-5 servings/day in place of empty calorie snacks working on choosing lower fat food options when eating out Travels a lot and lacks cooking skills - contemplating signing up for a cooking class Using a food oneal to keep track of food choices working on healthier options related to stress eating BS Monitoring Most Recent Diabetes Results: No Data to Display [facility] Medical History (Updated 09/12/24 @ 12:24 by Guanako Rodriguez MD) Cardiomyopathy Obstructive sleep apnea hypopnea, severe Vitamin D deficiency Epilepsy Morbid obesity with BMI of 50.0-59.9, adult Alpha thalassemia trait Obesity (BMI 30-39.9) Asthma Surgical History No pertinent past surgical history Family History Other Diabetes Hypertension Social History Housing: House Patient Tobacco Use Status: Never used Tobacco e-Cigarette/Vaping Use: Never Used service: No Current occupational status: employed and unemployed Cognitive needs: No Hearing needs: No Vision needs: No Assessment & Plan Assessment & Plan (1) Morbid obesity with BMI of 50.0-59.9, adult: Code(s): E66.01 - Morbid (severe) obesity due to excess calories; Z68.43 - Body mass index [BMI] 50.0-59.9, adult Category: Medical Plan: Wt: 154 Kg ( 10/15), 152 kg (12/13), 151 kg (01/13) Est kcal needs as per MSJ: 3300 (40% carb, 30% protein/fat) Est fluid needs as per 25-30 ml/d: 4500 Est prot per day as per 1 g/kg bw: 150 Recommend fiber intake : 8-10 g per day and gradually increase to 25-28 g per day for women and 35-38 g for men or as tolerated Recommend sodium intake per day : less than 2300 mg Educated patient on: ( R = reviewed V = verbalizes understanding N/R = needs review N/A = not applicable * Food sources of carbohydrate, adequate serving sizes and its role in various health conditions: R * Differences between complex carbohydrates a simple carbohydrates, role of fiber in diet: R * Lean protein sources of foods: R * Differences between types of fats and role in diet (mono on saturated fat fatty acids, saturated fatty acids, trans fats): R basic * Food sources of sodium in salt and healthy modifications for heart health in kidney health: R * Vitamins and minerals: R V N/R * Healthy plate method concept: R * Physical activity: Benefits a precaution: R V N/R Patient Instructions: Try fiber rich starchy vegetables : sweet potato, corn , try cauliflower try brown rice Continue working on mindful eating strategies keep hydrated, have water with meals or dilute juices with water, Coding Level of Care Code Nutr Indiv Subseq (49256) Diagnoses Morbid obesity with BMI of 50.0-59.9, adult E66.01; Z68.43 Time Spent (min) 20
[2024-12-26 15:03] VITALS: BMI 53.7
== END 2024-12-26 15:12 | disposition home or self-care (01) ==
LOC: HO.ENCR 14:12
PROVIDERS: PCP Internal Medicine; Visit Provider Dietitian, Registered
DX: E66.01 Morbid (severe) obesity due to excess calories (principal); Z68.43 Body mass index [BMI] 50.0-59.9, adult

== ENCOUNTER 2024-12-30 08:38 | Outpatient (AMB) | payer OTHER, SELFPAY ==
[2024-12-30 08:46] VITALS: BP 90/60; PULSE 90; O2SAT 98; BMI 53.4
--- NOTE | 2024-12-30 08:46 | A.OFFVIS_ITS ---
Vital Signs 12/30/24 08:46 Height 5 ft 6 in Weight 331 lb BMI 53.4 BP 90/60 Blood Pressure Location Rt brachial Position Sitting Pulse 90 Pulse Source Pulse Oximeter Pulse Oximetry (%) 98 Oxygen Delivery Method Room Air Intake Visit Reasons: Follow up Intake Note: Patient presents for follow up sleep study done 12/31/23-08/24/24 MRI was not done Medical Equipment Sales Required: No Accompanied by: Self / Same As Patient Allergies No Known Allergies Allergy (Verified 12/30/24 08:48) Medication List - Last Reconciled 12/30/24 by SARAH Villegas cholecalciferol (vitamin D3) 50 mcg PO DAILY 90 days vitamin B complex 1 tab PO DAILY HPI Comments Details: History of Present Illness The patient is a 29-year-old male presenting for follow-up of syncope evaluation. Since the last visit, patient has denies any further episodes of syncope. He was unable to complete brain MRI as requested due to claustrophobia. He has had cardiology evaluation, who felt that patient's convulsive syncopal episode was likely vasovagal syncope triggered by intermittent fasting. Sleep study indicates severe obstructive sleep apnea, elevated during REM sleep with nocturnal hypoxemia and frequent periodic limb movements of sleep. Denies restless leg syndrome despite frequent leg movements observed on sleep study. Cardiologic assessment noted low ejection fraction; however study was limited due to body habitus, thus is scheduled to undergo further cardiac testing including stress test. History of weight fluctuations, currently 331 pounds after adjusting diet- and is now working with a dietitian. Review of Systems - Neurological: Denies recurrent seizures, reports previous syncope episode. - Respiratory: Reports obstructive sleep apnea. - Cardiovascular: Reports low ejection fraction, denies further syncope. - Musculoskeletal: Denies symptoms of restless leg syndrome. - General: Reports prior weight fluctuations, currently enrolled in regular exercise. Results - Sleep Study: Moderately severe obstructive sleep apnea with 33 apneic events per hour, increasing to 52 during REM sleep. Average oxygen saturation 94%, lowest recorded at 70%, with episodes below 88% for nine minutes. Initial HPI, 12/04/2023: A L all the Right-handed 28-yr-old male presents for new pt evaluation of episode of AMS. PMH significant for anemia- has been referred to hematology, asthma, obesity, sleep difficulties. On 08/22/23, he was in his usual state of health. He had fasted the day before and slept late. At the time was doing intermittent fasting for intentional wt loss. He was working out 6 days a week- 2 hours (30-60 min of cardio, strength training). Drinking a lot of water- 3-6 16oz bottle of water per day, on a fasting day would have drank 8 16oz bottles of water. Then on 08/23/23- he had eaten 2 burritos and 2 grape sodas (typical intake following a fasting day). Afterwards, he was in his friend's car as a passenger, he burped but felt that it did not come all the way up- like an air pocket, chest discomfort, then he felt like he was spacing out x's a few seconds (<1 min). Afterwards, his friend told him that during the episode he was groaning, right and left hand shook, and both legs stiffened. He did not bite his tongue or lose urine. He then he faded back in, felt ok, did ask his friend to repeat what he had just said. He went home and rested, as he was very tired and generally weak for the rest of the day. He felt the weakness persisted through August. He also started having occipital region pressure headaches a/w photophobia, phonophobia, and difficulty concentrating, could only focus on one person talking at a time. These also resolved by the end of Aug 2023. Then on 08/24/23, he was with his mom and brother. He felt ok, but his mom was doing some cognitive testing. He could recall the order of his schooling. His sister was talking to him, he recalls that he he wanted to say something to her, but was only responding w/ [facility] . Soon after, he took his platter of vitamins , and this was f/b feeling a emery to the head, he could not the way he wanted to, it took him a while to get fully dressed, and he was having to put effort into choosing and speaking his words. At this point he went to [facility] ER. By the time he arrived to the ER, his cognition had cleared. Head CT- normal. Was d/c'd w/ instructions to establish care w/ a neurologist. He has sleep difficulties- endorses loud snoring, gasping arousals, witnessed apneas, daytime sleepiness. Denies h/o head injuries, usual headaches, previous seizure activity. Denies vision changes, numbness/tingling. Denies chest pain, SOB, Denies alcohol, tobacco, substance use. Pt reports normal gestational and uncomplicated delivery at 38 weeks, normal early development. He was a good student. Has a bachelor's in political science. 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 His mother has migraines and HTN. Denies family h/o seizures. [facility] Medical History (Updated 12/30/24 @ 09:08 by SARAH Villegas) Altered mental status, unspecified Cardiomyopathy Obstructive sleep apnea hypopnea, severe Vitamin D deficiency Morbid obesity with BMI of 50.0-59.9, adult Alpha thalassemia trait Obesity (BMI 30-39.9) Asthma Surgical History No pertinent past surgical history Family History Other Diabetes Hypertension Social History Housing: House Patient Tobacco Use Status: Never used Tobacco e-Cigarette/Vaping Use: Never Used service: No Current occupational status: employed and unemployed Cognitive needs: No Hearing needs: No Vision needs: No Physical Exam Vital Signs: Last Vital Signs Pulse 90 12/30/24 08:46 BP 90/60 12/30/24 08:46 Pulse Ox 98 12/30/24 08:46 Oxygen Delivery Method Room Air 12/30/24 08:46 BMI result Body Mass Index 53.4 Const Nutritional Appearance: obese morbidly obese Orientation/consciousness: patient oriented x3 HEENT Head: Yes normocephalic Resp Effort & Inspection: normal respiratory effort and able to speak in complete sentences Neuro General: patient oriented x3 Cranial nerves: Yes CN's II-XII intact bilaterally Cognition (Neuro): normal cognition Gait exam (Neuro): Normal gait present Motor exam (neuro): 5/5 motor strength present throughout Psych Appearance: grossly normal Mental Status: mental status grossly normal Speech and movement: Normal speech and movement present Affect: normal affect Attitude: cooperative Thought process: Normal thought process present Assessment & Plan Assessment & Plan (1) Obstructive sleep apnea hypopnea, severe: Code(s): G47.33 - Obstructive sleep apnea (adult) (pediatric) Category: Medical (2) Syncope: Comment: Episode of AMS on 08/23/23 and 08/24/23- likely vaso-vagal d/t fasting Code(s): R55 - Syncope and collapse Category: Medical (3) Morbid obesity with BMI of 50.0-59.9, adult: Code(s): E66.01 - Morbid (severe) obesity due to excess calories; Z68.43 - Body mass index [BMI] 50.0-59.9, adult Category: Medical Plan Discussion Notes I discussed with the patient the management of obstructive sleep apnea and the recommendation for a follow-up sleep study with CPAP titration to determine optimal PAP treatment settings. This intervention aims to reduce apneic events and improve oxygen saturation during sleep. We talked about the significance of controlling sleep apnea to mitigate potential cardiovascular and metabolic risks. I clarified the processes and expectations surrounding CPAP therapy, noting the possibility of claustrophobia, and assured treating as required. Regarding low ejection fraction, further testing and management are under cardiology care. The distinction between a single seizure-like (such as convulsive syncope ) event and epilepsy was explained, and the epilepsy diagnosis was to be removed from records. Weight management strategies, including the possibility of pharmacotherapy with GLP-1 receptor agonists, were considered given the patient's obesity and its impact on sleep apnea. Plan I recommended CPAP titration to optimize apnea management- we will monitor degree of periodic limb movement of sleep during PAP titration study to see if Pap therapy has any effect on degree of limb movements. Zepbound therapy and referral to weight management clinic was considered for weight loss, however patient would like to continue working with his dietitian on optimizing his diet and continue his home exercise program for now. Cardiology to assess low ejection fraction, monitor further by stress tests. Confirmed cessation of epilepsy diagnosis. Explained apnea's health impact, emphasized CPAP compliance once started, and weight management importance. Patient was informed and verbally consented to the use of an ambient scribe for clinic note documentation during this visit. Patient Instructions - Attend a follow-up sleep study for CPAP titration. - Use CPAP machine consistently if prescribed to manage sleep apnea. - Engage in regular exercises and dietary management, consider further weight management discussions. - Report any new syncope or seizure-like events immediately. - Follow-up with cardiology as scheduled for low ejection fraction. - We will hold previous brain MRI and EEGorder for now, patient has not had any recurrence of convulsive syncope, in concur that most likely etiology was vasovagal syncope due to fasting. - Future consideration: support from weight management clinic for potential Zepbound therapy. Orders: Orders RT PSG in-lab sleep titration Today G47.33 - Obstructive sleep apnea (adult) (pediatric) Coding Level of Care Code Est Pt Level 4 (57193) Diagnoses Obstructive sleep apnea hypopnea, severe G47.33 Syncope R55 Morbid obesity with BMI of 50.0-59.9, adult E66.01; Z68.43
== END 2024-12-30 09:23 | disposition home or self-care (01) ==
LOC: HO.HSMS 08:38
PROVIDERS: PCP Internal Medicine; Visit Provider Nurse Practitioner Family
DX: G47.33 Obstructive sleep apnea (adult) (pediatric) (principal); R55 Syncope and collapse; E66.01 Morbid (severe) obesity due to excess calories; Z68.43 Body mass index [BMI] 50.0-59.9, adult
CPT/HCPCS: 99214

== ENCOUNTER → 2024-12-30 08:38 | Outpatient (BNVA) | payer OTHER, SELFPAY | PROVIDERS: PCP Internal Medicine; Visit Provider Nurse Practitioner Family | DX: G47.33 Obstructive sleep apnea (adult) (pediatric) (principal); R55 Syncope and collapse; E66.01 Morbid (severe) obesity due to excess calories; Z68.43 Body mass index [BMI] 50.0-59.9, adult; Z99.89 Dependence on other enabling machines and devices | CPT/HCPCS: 99212 ==

== ENCOUNTER → 2025-01-20 14:03 | Outpatient (REF) | payer OTHER, SELFPAY ==
--- NOTE | 2025-01-20 14:13 | CA_ITS ---
Transthoracic Echocardiogram Patient (Last, First, Middle): Lorrie Lainez, Gender: Male Date of : 1995 Age: 29 Procedure Date: 01/20/2025 Procedure Type: Transthoracic Echocardiogram Location: [facility] [place] Height: 167.64 cm Weight: 148.78 kg BSA: 2.47 m2 Heart Rate: bpm BP: 130 / 82 mmHg Assistant Farm Operations Manager: Referring MD: Gwendolyn Vasquez WHALE TRAINERSeanC Symptoms: I42.9 - Cardiomyopathy, unspecified Study Quality: Fair ECG Rhythm: Atrial Fibrillation Conclusions: - Normal left ventricular cavity size. There is moderately increased left ventricular wall thickness. The left ventricular systolic function is mild to moderately decreased. The visually estimated ejection fraction is between 35-40%. - Normal right ventricular cavity size and systolic function. - Significantly elevated right atrial pressure. Findings Procedure Information Contrast agent, definity, is being given per protocol without apparent complications. Left Ventricle Normal left ventricular cavity size. There is moderately increased left ventricular wall thickness. The left ventricular systolic function is mild to moderately decreased. The visually estimated ejection fraction is between 35-40%. There is mild global hypokinesis. Diastolic function is indeterminate on the basis of available data. Right Ventricle Normal right ventricular cavity size and systolic function. Tricuspid Valve Significantly elevated right atrial pressure. Venous The inferior vena cava is dilated and collapses less than 50% with inspiration. Pericardium/Pleural There is no evidence of pericardial effusion. Prior Study Comparison Changes noted compared to prior study dated: 08/01/2024. EF 35 to 40%. Measurements 2D Linear Measurements IVSd: 1.29 0.6-0.9/0.6-1.0 cm LVIDd: 4.08 3.9-5.3/4.2-5.9 cm LVIDd Index: 1.65 2.4-3.2/2.2-3.1 cm/m2 LVIDs: 2.57 2.0-3.6 cm LVPWd: 1.28 0.7-1.1 cm LV Mass: 235.21 67-162/88-224 g LV Mass Index: 95.23 43-95/49-115 g/m2 LVOT Diam: 2.50 3.0+(-)1.3 cm 2D Systolic Function EF 4C: 42.00 >55% EF 2C: 39.40 >55% EF BiP: 39.80 >55% LVOT LVOT Diam: 2.50 LVOT Area: 4.91 Updated in Other Vendor System with Status of Final Nando Fisher MD electronically signed on 01/21/2025 8:45:28 PM with status of Final
== END ==
LOC: HO.CARD 14:03
PROVIDERS: PCP Internal Medicine; Visit Provider Nurse Practitioner Family
DX: I42.9 Cardiomyopathy, unspecified (principal)
CPT/HCPCS: 93308; Q9957

== ENCOUNTER → 2025-01-20 14:13 | Outpatient (BNV) | payer OTHER, SELFPAY | PROVIDERS: PCP Internal Medicine; Visit Provider Internal Medicine Cardiovascular Disease | DX: I42.9 Cardiomyopathy, unspecified (principal) | CPT/HCPCS: 93308 ==

== ENCOUNTER → 2025-01-20 19:30 | Outpatient (REF) | payer OTHER, SELFPAY | LOC: HO.SL 19:30 | PROVIDERS: PCP Internal Medicine; Visit Provider Nurse Practitioner Family | DX: G47.33 Obstructive sleep apnea (adult) (pediatric) (principal) | CPT/HCPCS: 95811 ==

== ENCOUNTER → 2025-01-20 19:30 | Outpatient (BNV) | payer OTHER, SELFPAY | PROVIDERS: PCP Internal Medicine; Visit Provider Psychiatry & Neurology Neurology | DX: G47.33 Obstructive sleep apnea (adult) (pediatric) (principal) | CPT/HCPCS: 95811 ==

== ENCOUNTER 2025-03-02 13:18 | Outpatient (AMB) | payer OTHER, SELFPAY ==
[2025-03-02 13:26] VITALS: BMI 51.9
--- NOTE | 2025-03-02 13:26 | A.OFFVIS_ITS ---
VS Expanded 03/02/25 13:26 Height 5 ft 6 in Weight 321 lb 13.998 oz BMI 51.9 Intake Visit Reasons: Obesity Allergies No Known Allergies Allergy (Verified 12/30/24 08:48) Nutrition Presentation Details: Pt presents for MNT f/u for obesity Pt reports working on making home made meals and choosing lower fat food options B: eggs/stover/onion on bread or Irish toast and protein pancakes L: ground beef burgers iwth onions/tomatoes, burger , water D: eating out working on healthy plate method options physical activity: 6000 steps for 50 days straight keeping track of food intake , est prot intake 50 g/d Pt reports he is keeping motivated but also hesitant about future progress [facility] Medical History (Updated 12/30/24 @ 09:08 by SARAH Villegas) Altered mental status, unspecified Cardiomyopathy Obstructive sleep apnea hypopnea, severe Vitamin D deficiency Morbid obesity with BMI of 50.0-59.9, adult Alpha thalassemia trait Obesity (BMI 30-39.9) Asthma Surgical History No pertinent past surgical history Family History Other Diabetes Hypertension Social History Housing: House Patient Tobacco Use Status: Never used Tobacco e-Cigarette/Vaping Use: Never Used service: No Current occupational status: employed and unemployed Cognitive needs: No Hearing needs: No Vision needs: No Assessment & Plan Assessment & Plan (1) Morbid obesity with BMI of 50.0-59.9, adult: Code(s): E66.01 - Morbid (severe) obesity due to excess calories; Z68.43 - Body mass index [BMI] 50.0-59.9, adult Category: Medical Plan: Wt: 154 Kg ( 10/15), 152 kg (12/13), 151 kg (01/13), 146 kg (03/15) Est kcal needs as per MSJ: 3300 (40% carb, 30% protein/fat) Est fluid needs as per 25-30 ml/d: 4400 Est prot per day as per 1 g/kg bw: 150 Recommend fiber intake : 8-10 g per day and gradually increase to 25-28 g per day for women and 35-38 g for men or as tolerated Recommend sodium intake per day : less than 2300 mg Educated patient on: ( R = reviewed V = verbalizes understanding N/R = needs review N/A = not applicable * Food sources of carbohydrate, adequate serving sizes and its role in various health conditions: R * Differences between complex carbohydrates a simple carbohydrates, role of fiber in diet: R * Lean protein sources of foods: R * Differences between types of fats and role in diet (mono on saturated fat fatty acids, saturated fatty acids, trans fats): R basic * Food sources of sodium in salt and healthy modifications for heart health in kidney health: R * Vitamins and minerals: R * Healthy plate method concept: R * Physical activity: Benefits a precaution: R Patient Instructions: Have 2 yogurts as pre dinner snack (increasing protein ) Continue with walking, increase steps to 7000 daily, unless otherwise specified by your doctor Coding Level of Care Code Nutr Indiv Subseq (99232) Diagnoses Morbid obesity with BMI of 50.0-59.9, adult E66.01; Z68.43 Time Spent (min) 20
== END 2025-03-02 14:04 | disposition home or self-care (01) ==
LOC: HO.ENCR 13:19
PROVIDERS: PCP Internal Medicine; Visit Provider Dietitian, Registered
DX: E66.01 Morbid (severe) obesity due to excess calories (principal); Z68.43 Body mass index [BMI] 50.0-59.9, adult

== ENCOUNTER → 2025-03-02 13:18 | Outpatient (BNVA) | payer OTHER, SELFPAY | PROVIDERS: PCP Internal Medicine; Visit Provider Dietitian, Registered | DX: E66.01 Morbid (severe) obesity due to excess calories (principal); Z68.43 Body mass index [BMI] 50.0-59.9, adult | CPT/HCPCS: 97803 ==

== ENCOUNTER 2025-07-12 14:30 | Outpatient (AMB) | payer OTHER, SELFPAY ==
--- NOTE | 2025-07-12 14:31 | A.OFFVIS_ITS ---
Vital Signs 07/12/25 14:32 Height 5 ft 6 in Weight 344 lb BMI 55.5 BP 140/84 H Blood Pressure Location Rt brachial Position Sitting Pulse 85 Pulse Source Pulse Oximeter Pulse Oximetry (%) 98 Oxygen Delivery Method Room Air Intake Visit Reasons: 6 mo follow up Intake Note: Patient presents for follow up sleep study done 12/31/23-08/24/24 MRI was not done Equity Structurer Required: No Accompanied by: Self / Same As Patient Allergies No Known Allergies Allergy (Verified 07/12/25 14:38) Medication List - Last Reconciled 07/12/25 by SARAH Villegas cholecalciferol (vitamin D3) 50 mcg PO DAILY 90 days vitamin B complex 1 tab PO DAILY HPI Comments Details: 07/12/2025, HPI: The patient is a 30-year-old male presenting for a follow-up of sleep apnea and previous history of syncope Sleep Apnea: - The patient has been diagnosed with sleep apnea and requires PAP therapy. - In January, he underwent a Pap titration sleep study, but left early due to inadequate sleep. he notes he was undergoing increased stress related to his partner at the time; however, he is no longer in that relationship. * At pressures of 4 and 6, sleep apnea was worse than baseline; at pressures of 8 and 10, the condition improved, with pressure of 10 being most beneficial, with apnea improvements at pressure 10, but oxygen saturation at this setting was 88%. * - Periodic limb movement of sleep approximately 73 times per hour and 16 arousals per hour. - He denies any bothersome leg movements or restlessness at night. In the baseline sleep study, there was less notable periodic limb movement of sleep. - No prior use of CPAP outside the lab study. - Unfortunately, he has not yet received the CPAP machine, which was ordered after his PAP titration study. He believes that [facility] had called him, but he may have thought it was a [facility] call. Potential Anemia: - Past blood tests indicated low hemoglobin and hematocrit with a low mean corpuscular volume. - Patient recalls a primary care physician mentioning possible thalassemia. History of syncope: He denies any interval syncopal episodes. He states he is no longer doing intermittent fasting He has seen Cardiology and was advised to undergo a 7-day Holter monitor, but he has not done this yet. Neck pain: He reports that since the previous syncopal episode, he has had nonradiating neck discomfort when he wears even a light necktie or a tie. Otherwise, he denies usual neck pain. Medical History: - Sleep Apnea - Potential Anemia - Possible Thalassemia Trait Family History: - Possible thalassemia trait (unspecified family connection) - Denies family history of sickle cell disease 12/30/2024, HPI: The patient is a 29-year-old male presenting for follow-up of syncope evaluation. Since the last visit, patient has denies any further episodes of syncope. He was unable to complete brain MRI as requested due to claustropho carley. He has had cardiology evaluation, who felt that patient's convulsive syncopal episode was likely vasovagal syncope triggered by intermittent fasting. Sleep study indicates severe obstructive sleep apnea, elevated during REM sleep with nocturnal hypoxemia and frequent periodic limb movements of sleep. Denies restless leg syndrome despite frequent leg movements observed on sleep study. Cardiologic assessment noted low ejection fraction; however study was limited due to body habitus, thus is scheduled to undergo further cardiac testing including stress test. History of weight fluctuations, currently 331 pounds after adjusting diet- and is now working with a dietitian. Review of Systems - Neurological: Denies recurrent seizures, reports previous syncope episode. - Respiratory: Reports obstructive sleep apnea. - Cardiovascular: Reports low ejection fraction, denies further syncope. - Musculoskeletal: Denies symptoms of restless leg syndrome. - General: Reports prior weight fluctuations, currently enrolled in regular exercise. Results - Sleep Study: Moderately severe obstructive sleep apnea with 33 apneic events per hour, increasing to 52 during REM sleep. Average oxygen saturation 94%, lowest recorded at 70%, with episodes below 88% for nine minutes. Initial HPI, 12/04/2023: Right-handed 28-yr-old male presents for new pt evaluation of episode of AMS. PMH significant for anemia- has been referred to hematology, asthma, obesity, sleep difficulties. On 08/22/23, he was in his usual state of health. He had fasted the day before and slept late. At the time was doing intermittent fasting for intentional wt loss. He was working out 6 days a week- 2 hours (30-60 min of cardio, strength training). Drinking a lot of water- 3-6 16oz bottle of water per day, on a fasting day would have drank 8 16oz bottles of water. Then on 08/23/23- he had eaten 2 burritos and 2 grape sodas (typical intake following a fasting day). Afterwards, he was in his friend's car as a passenger, he burped but felt that it did not come all the way up- like an air pocket, chest discomfort, then he felt like he was spacing out x's a few seconds (<1 min). Afterwards, his friend told him that during the episode he was groaning, right and left hand shook, and both legs stiffened. He did not bite his tongue or lose urine. He then he faded back in, felt ok, did ask his friend to repeat what he had just said. He went home and rested, as he was very tired and generally weak for the rest of the day. He felt the weakness persisted through August. He also started having occipital region pressure headaches a/w photophobia, phonophobia, and difficulty concentrating, could only focus on one person talking at a time. These also resolved by the end of Aug 2023. Then on 08/24/23, he was with his mom and brother. He felt ok, but his mom was doing some cognitive testing. He could recall the order of his schooling. His sister was talking to him, he recalls that he he wanted to say something to her, but [facility] . Soon after, he took his platter of vitamins , and this was f/b feeling a emery to the head, he could not the way he wanted to, it took him a while to get fully dressed, and he was having to put effort into choosing and speaking his words. At this point he went to [facility]. By the time he arrived to the ER, his cognition had cleared. Head CT- normal. Was d/c'd w/ instructions to establish care w/ a neurologist. He has sleep difficulties- endorses loud snoring, gasping arousals, witnessed apneas, daytime sleepiness. Denies h/o head injuries, usual headaches, previous seizure activity. Denies vision changes, numbness/tingling. Denies chest pain, SOB, Denies alcohol, tobacco, substance use. Pt reports normal gestational and uncomplicated delivery at 38 weeks, normal early development. He was a good student. Has a bachelor's in political science. 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 His mother has migraines and HTN. Denies family h/o seizures. [facility] Medical History (Updated 07/12/25 @ 18:23 by SARAH Villegas) Altered mental status, unspecified Cardiomyopathy Obstructive sleep apnea hypopnea, severe Vitamin D deficiency Morbid obesity with BMI of 50.0-59.9, adult Alpha thalassemia trait Obesity (BMI 30-39.9) Asthma Surgical History No pertinent past surgical history Family History Other Diabetes Hypertension Social History Housing: House Patient Tobacco Use Status: Never used Tobacco e-Cigarette/Vaping Use: Never Used service: No Current occupational status: employed and unemployed Cognitive needs: No Hearing needs: No Vision needs: No Physical Exam Vital Signs: Last Vital Signs Pulse 85 07/12/25 14:32 BP 140/84 H 07/12/25 14:32 Pulse Ox 98 07/12/25 14:32 Oxygen Delivery Method Room Air 07/12/25 14:32 BMI result Body Mass Index 55.5 Const Nutritional Appearance: obese morbidly obese Orientation/consciousness: patient oriented x3 HEENT Head: Yes normocephalic Resp Effort & Inspection: normal respiratory effort and able to speak in complete sentences Neuro General: patient oriented x3 Cranial nerves: Yes CN's II-XII intact bilaterally Cognition (Neuro): normal cognition Gait exam (Neuro): Normal gait present Motor exam (neuro): 5/5 motor strength present throughout Psych Appearance: grossly normal Mental Status: mental status grossly normal Speech and movement: Normal speech and movement present Affect: normal affect Attitude: cooperative Thought process: Normal thought process present Assessment & Plan Assessment & Plan (1) Obstructive sleep apnea hypopnea, severe: Code(s): G47.33 - Obstructive sleep apnea (adult) (pediatric) Category: Medical (2) Syncope: Comment: Episode of AMS on 08/23/23 and 08/24/23- likely vaso-vagal d/t fasting Code(s): R55 - Syncope and collapse Category: Medical Qualifiers: Syncope type: vasovagal syncope Qualified Code(s): R55 - Syncope and collapse (3) Morbid obesity with BMI of 50.0-59.9, adult: Code(s): E66.01 - Morbid (severe) obesity due to excess calories; Z68.43 - Body mass index [BMI] 50.0-59.9, adult Category: Medical Plan Discussion notes: I reviewed the patient's history of sleep apnea along with the associated leg movement disorder and discussed details of the previous sleep study, which was prematurely concluded. I emphasized the importance of using a CPAP machine with the optimal pressure settings between 10 and 20 to alleviate the symptoms of sleep apnea and improve the quality of sleep. I explained that an APAP machine would automatically adjust these settings and introduced the option of a ResMed oneal for tracking progress. The patient was informed about the significance of monitoring the CPAP machine each morning for efficacy markers such as red or happy faces. I advised a follow-up with regional home care for the machine setup. We also discussed a potential anemia with uncertain thalassemia status, which may exacerbate periodic limb movement of sleep symptoms, necessitating further laboratory evaluation. The patient was encouraged to try sleeping with his head elevated with a sleep apnea wedge pillow, and I suggested considering ergonomic adjustments to alleviate neck discomfort when wearing jewelry. Patient was informed and verbally consented to the use of an ambient scribe for clinic note documentation during this visit. Patient Instructions For ESTEPHANIE: * Start APAP 10-20 cm H2O nightly for greater than 4 hours. * We will request an overnight pulse oximetry study x1 night on room air via APAP, to assess efficacy of PAP therapy on optimizing nocturnal oxygenation. * Call regional home care to arrange for APAP set up appointment * Future consideration: support from weight management clinic for potential Zepbound therapy. For periodic limb movement of sleep: * Discussed that this maybe exacerbated by untreated sleep apnea * Check labs for common etiologies For history of syncope: * Call cardiology to follow up on status of 7 day Holter monitor order * Report any new syncope or seizure-like events immediately. * We will hold previous brain MRI and EEGorder for now, patient has not had any recurrence of convulsive syncope, in concur that most likely etiology was vasovagal syncope due to fasting. - Orders: Orders Erythrocyte Sedimentation Rate Today D50.9 - Iron deficiency anemia, unspecified, E55.9 - Vitamin D deficiency, unspecified, E66.9 - Obesity, unspecified C Reactive Protein Today D50.9 - Iron deficiency anemia, unspecified, E55.9 - Vitamin D deficiency, unspecified, E66.9 - Obesity, unspecified Vitamin D 25-OH (D2 and D3) 3 Months D50.9 - Iron deficiency anemia, unspecified, E55.9 - Vitamin D deficiency, unspecified, E66.9 - Obesity, unspecified Overnight Pulse Oximetry Today G47.33 - Obstructive sleep apnea (adult) (pediatric), G47.34 - Idiopathic sleep related nonobstructive alveolar hypoventilation Complete Blood Count Auto Diff Today D50.9 - Iron deficiency anemia, unspecified, E55.9 - Vitamin D deficiency, unspecified, E66.9 - Obesity, unspecified Comprehensive Bouse. Panel Fast Today D50.9 - Iron deficiency anemia, unsp ecified, E55.9 - Vitamin D deficiency, unspecified, E66.9 - Obesity, unspecified Ferritin Today D50.9 - Iron deficiency anemia, unspecified, E55.9 - Vitamin D deficiency, unspecified, E66.9 - Obesity, unspecified IRON PROFILE Today D50.9 - Iron deficiency anemia, unspecified, D64.9 - Anemia, unspecified, E55.9 - Vitamin D deficiency, unspecified, E66.9 - Obesity, unspecified Vitamin B12 and Folate Today D50.9 - Iron deficiency anemia, unspecified, E55.9 - Vitamin D deficiency, unspecified, E66.9 - Obesity, unspecified Coding Level of Care Code Est Pt Level 3 (01117) Diagnoses Obstructive sleep apnea hypopnea, severe G47.33 Vasovagal syncope R55 Syncope type: vasovagal syncope Morbid obesity with BMI of 50.0-59.9, adult E66.01; Z68.43
[2025-07-12 14:32] VITALS: BP 140/84; PULSE 85; O2SAT 98; BMI 55.5
== END 2025-07-12 15:26 | disposition home or self-care (01) ==
LOC: HO.HSMS 14:31
PROVIDERS: PCP Internal Medicine; Visit Provider Nurse Practitioner Family
DX: G47.33 Obstructive sleep apnea (adult) (pediatric) (principal); R55 Syncope and collapse; E66.01 Morbid (severe) obesity due to excess calories; Z68.43 Body mass index [BMI] 50.0-59.9, adult
CPT/HCPCS: 99213

== ENCOUNTER → 2025-07-12 14:30 | Outpatient (BNVA) | payer OTHER, SELFPAY | PROVIDERS: PCP Internal Medicine; Visit Provider Nurse Practitioner Family | DX: G47.33 Obstructive sleep apnea (adult) (pediatric) (principal); G47.34 Idiopathic sleep related nonobstructive alveolar hypoventilation; R55 Syncope and collapse; E66.01 Morbid (severe) obesity due to excess calories; Z68.43 Body mass index [BMI] 50.0-59.9, adult; D50.9 Iron deficiency anemia, unspecified; E55.9 Vitamin D deficiency, unspecified | CPT/HCPCS: 99212 ==

== ENCOUNTER 2025-07-13 13:09 | Outpatient (REF) | payer OTHER, SELFPAY ==
[2025-07-13 17:50] LABS: MANUAL DIFF FLAG NO
[2025-07-13 18:05] LABS: Hematocrit 45.2 % (42.0-52.0); Hemoglobin 13.9 g/dl (14.0-18.0); Imm Gran Abs Auto 0.07 X10*3/uL (0.00-0.03); Imm Gran Pct Auto 0.8 % (0.0-0.4); Lymphocytes Absolute Auto 2.4 X10*3/uL (1.2-4.9); Mean Corpuscular HGB Conc 30.8 g/dl (31.0-36.0); Mean Corpuscular Hemoglobin 21.8 pg (27.0-33.0); Mean Corpuscular Volume 70.8 fL (80.0-98.0); NRBC Abs Auto 0.000 X10*3/uL (0.0-0.012); NRBC Pct Auto 0.0 /100WBC (0.0-0.2); Platelet Count 215 X10*3/uL (160-400); Red Blood Count 6.38 X10*6/uL (4.60-5.80); White Blood Count 9.3 X10*3/uL (4.8-10.8)
[2025-07-13 18:29] LABS: Folate 12.1 ng/mL (> or = 4.0); Vitamin B12 438 pg/mL (200-900)
[2025-07-13 18:32] LABS: Alanine Aminotransferase 27 U/L (0-40); Albumin Level 4.3 g/dL (3.5-5.0); Alkaline Phosphatase 102 U/L (39-117); Anion Gap 13 (12-20); Aspartate Amino Transferase 30 U/L (5-37); Blood Urea Nitrogen 8 mg/dL (9-16); Calcium 9.0 mg/dL (8.4-10.2); Carbon Dioxide 24 mmol/L (22-29); Chloride 104 mmol/L (96-108); Estimated Glomerular Filt Rate > 60; Iron 85 mcg/dL (45-160); Percent Iron Saturation 34 % (15-50); Potassium 4.1 mmol/L (3.3-5.1); Sodium 137 mmol/L (135-145); Total Iron Binding Capacity 249 mcg/dL (228-428); Total Protein 7.6 g/dL (6.5-8.0); Unsaturated Iron Binding 164 ug/dL
[2025-07-13 18:40] LABS: Ferritin 57 ng/mL (20-250)
[2025-07-18 02:58] LABS: Vitamin D 25-OH, D2 <4 ng/mL; Vitamin D 25-OH, D3 18 ng/mL; Vitamin D 25-OH, Total 18 ng/mL (30-100)
== END 2025-07-13 13:10 | disposition home or self-care (01) ==
LOC: HO.HKASLDS 13:09
PROVIDERS: PCP Internal Medicine; Visit Provider Nurse Practitioner Family
DX: D50.9 Iron deficiency anemia, unspecified (principal); E55.9 Vitamin D deficiency, unspecified; E66.9 Obesity, unspecified
CPT/HCPCS: 36415; 80053; 82306; 82607; 82728; 82746; 83540; 85025; 85652; 86140

== ENCOUNTER 2025-08-20 11:05 | Emergency (ER) | payer OTHER, SELFPAY ==
--- NOTE | ~2025-08-20 | XR_ITS ---
CLINICAL HISTORY: left arm pain 4 views cervical spine Comparison: 05/04/2024 Findings: Normal vertebral body alignment. No acute fractures or dislocation. No significant degenerative change. No prevertebral soft tissue swelling. IMPRESSION: No acute findings. This document has been electronically signed by: Titi Ramos MD on 08/20/2025 13:49:41
--- NOTE | ~2025-08-20 | XR_ITS ---
CLINICAL HISTORY: pain 3 views lumbar spine Comparison: None provided Findings: Normal alignment. No acute fractures or dislocation. No significant degenerative change. IMPRESSION: No acute findings. This document has been electronically signed by: Titi Ramos MD on 08/20/2025 13:46:31
[2025-08-20 11:24] VITALS: BP 132/79; PULSE 89; RESP 18; TEMP 36.1; O2SAT 96; BMI 54.4
--- NOTE | 2025-08-20 11:25 | ED.GENADULT ---
HPI - General Adult General Chief complaint: Back Pain/Injury Stated complaint: General Medical Time Seen by Provider: 08/20/25 15:17 Source: patient Mode of arrival: ambulatory Limitations: no limitations History of Present Illness HPI narrative: 30-year-old male who has a history of ESTEPHANIE, chronic neck and back pain, presents for evaluation of exacerbation of left-sided neck and left low back pain. Patient states he has had this pain since approximately 2022. He has been evaluated for this in the past but has not had any significant follow up. Patient states that proximally 2 weeks ago he was doing back extensions and weight lifting. Patient states this exacerbated symptoms at that time. Due to the persistent nature of symptoms, he presents to the emergency department. In addition he also reports occasional paresthesias down the left leg As well as down his left arm. He denies any repeat trauma. No bowel or bladder incontinence. He has not tried any medication for this. Patient is otherwise feeling well. Related Data Home Medications ?Medication ?Instructions ?Recorded ?Confirmed vitamin B complex 1 tab PO DAILY 04/18/24 07/12/25 Previous Rx's ?Medication ?Instructions ?Recorded cholecalciferol (vitamin D3) 50 50 mcg PO DAILY 90 days #90 caps 11/09/23 mcg (2,000 unit) capsule lidocaine 4 % topical patch 1 patch topical BID PRN pain #15 ea 08/20/25 methocarbamol 750 mg tablet 750 mg PO TID PRN muscle spasm #20 08/20/25 tabs naproxen 500 mg tablet 500 mg PO BID PRN pain 7 days #14 08/20/25 tabs Allergies Allergy/AdvReac Type Severity Reaction Status Date / Time No Known Allergies Allergy Verified 08/20/25 11:34 Review of Systems Review of Systems: Yes all other systems are reviewed and are negative Constitutional: Constitutional: Denies chills ENT: Reports neck pain Musculoskeletal: Musculoskeletal: Reports back pain, Reports neck pain and Reports tingling Neurologic: Reports tingling PMFSH Past Medical History Medical History Altered mental status, unspecified Cardiomyopathy Obstructive sleep apnea hypopnea, severe Vitamin D deficiency Morbid obesity with BMI of 50.0-59.9, adult Alpha thalassemia trait Obesity (BMI 30-39.9) Asthma Surgical History No pertinent past surgical history Family History Family History Other Diabetes Hypertension Social History Social History Housing: House Patient Tobacco Use Status: Never used Tobacco e-Cigarette/Vaping Use: Never Used Advance Directives: No Advance Directives Information Provided: No service: No Current occupational status: employed and unemployed Cognitive needs: No Hearing needs: No Vision needs: No Physical Exam ED Vital Signs: Vital Signs - 24 hr 08/20/25 11:24 08/20/25 15:42 Temperature 97.0 F 97.0 F Pulse Rate 89 89 Respiratory Rate 18 18 Blood Pressure 132/79 132/79 Pulse Oximetry 96 96 Oxygen Delivery Method Room Air Room Air BMI result Body Mass Index 54.4 Const Orientation/consciousness: patient oriented x3 Neck Other: Full range of motion without difficulty. Mild spasm into the left trapezius muscles. No spinous, paraspinous or paravertebral tenderness. Back/Spine/Pelvis Other: Assembly Room Supervisor is 5/5 bilaterally. Full range of motion of all joints. Capillary refills less than 2 seconds. Radial pulses are +2 and equal bilaterally. Mild left SI joint region tenderness. Occasional worsening with twisting. Neuro General: patient oriented x3 and deep tendon reflexes 2+ bilaterally Course Course Course Narrative: Medical screening exam performed. Please refer to detailed history, exam, evaluation, and management by primary provider. Two weeks ago patient working out doing back extensions urinating wanes. Since that time, having tightness and intermittent shooting pain down the left leg. Reporting spasming of the muscles in the left low back. Also reporting similar symptoms down the left arm. No trauma. No urinary or bowel incontinence. No history of similar. Start with plain xrays. Medical Decision Making Medical Decision Making MDM Narrative: 30-year-old male with acute on chronic low back pain. Patient confirms that this is the same pain and symptoms that he has had previously. He believes that due to his recent exertion with weightlifting may have aggravated his symptoms. Based on the patient's history and physical exam this is likely the cause. I have discussed with the patient that he may have underlying injury or other etiology for his symptoms that will require follow up with his PCP. The patient is agreeable to this. I have also recommended that he may need possible advanced imaging as well as possible physical therapy. Patient states he will contact his PCP tomorrow to schedule follow up. At this time, he is hemodynamically stable without any focal deficits, no evidence suggestive of cauda equina. Patient feels comfortable with discharge plan home, trial of medications and will follow up with PCP. No further questions at this time. Differential Diagnosis Cauda equina Paresthesias Muscle spasm Nerve impingement Radiology Impression Discussion of test interpretation with radiology: I have reviewed the radiologist's reading. Discharge Plan Discharge Clinical Impression: Cervical muscle strain, Strain of lumbar region Patient Disposition: Home, Self-Care Instructions: Cervical Strain (DC), Low Back Strain (ED), Lower Back Exercises (ED) Additional Instructions: Rest. Avoid strenuous activity. Warm compresses to the affected area. Naproxen as directed. Take with a Food. Robaxin as directed for pain and muscle spasm. Lidocaine patches to the affected area. Consider physical therapy, discussed with your primary care provider. Follow-up with your primary care provider. Call this week to schedule a follow-up appointment. Return to the emergency department if you have any worsening of symptoms, or any concerns. Get well soon! Prescriptions: New naproxen 500 mg tablet 500 mg PO BID PRN (Reason: pain) 7 Days Qty: 14 0RF Rx Instructions: Take with food. lidocaine 4 % adhesive patch,medicated 1 patch topical BID PRN (Reason: pain) Qty: 15 0RF methocarbamol 750 mg tablet 750 mg PO TID PRN (Reason: muscle spasm) Qty: 20 0RF No Action cholecalciferol (vitamin D3) 50 mcg (2,000 unit) capsule 50 mcg PO DAILY 90 Days Qty: 90 3RF vitamin B complex Tablet 1 tab PO DAILY Stand Alone Forms: Work/School Release Interventions: ED Discharge Assessment Last Done: 08/20/25 15:42 Discharge Date/Time: 08/20/25 15:42 Print Language: Chinese
[2025-08-20 15:42] VITALS: BP 132/79; PULSE 89; RESP 18; TEMP 36.1; O2SAT 96
== END 2025-08-20 15:42 | disposition home or self-care (01) ==
PROVIDERS: Emergency Provider Emergency Medicine Emergency Medical Services; PCP Internal Medicine
DX: S16.1XXA Strain of muscle, fascia and tendon at neck level, initial encounter (principal); S39.012A Strain of muscle, fascia and tendon of lower back, initial encounter; X58.XXXA Exposure to other specified factors, initial encounter; Y93.9 Activity, unspecified; Y92.9 Unspecified place or not applicable
CPT/HCPCS: 72040; 72100; 99282; 99283

== ENCOUNTER → 2025-08-20 11:29 | Outpatient (BNV) | payer OTHER, SELFPAY | PROVIDERS: Visit Provider Radiology Vascular & Interventional Radiology | DX: M54.50 Low back pain, unspecified (principal); M79.602 Pain in left arm | CPT/HCPCS: 72040; 72100 ==